=== PATIENT | female | born 1965 | race Caucasian/White ===

== ENCOUNTER 2016-09-13 08:50 | Emergency (ER) | payer OTHER ==
[~2016-09-13] VITALS: Ht 167.6 cm; Wt 87.5 kg
--- NOTE | 2016-09-13 09:00 | NUR ---
ARRIVAL PT ARRIVED AMBULATORY TO ER 6 C/O FLANK PAIN X1 DAY. NO ACUTE DISTRESS NOTED. EDP NOTIFIED OF PT ARRIVAL.
--- NOTE | 2016-09-13 09:03 | ER.PDOC ---
General Chief Complaint: Requesting Medical Care Stated Complaint: LOWER BACK PAIN Time seen by MD: 09:03 Source: patient Exam Limitations: no limitations History of Present Illness Initial Comments PT ARRIVED AMBULATORY TO ER 6 C/O FLANK PAIN X1 DAY. Timing/Duration: constant, yesterday Severity/Quality: severe Associated Symptoms: lower back pain Allergies: Coded Allergies: fluticasone (Verified Allergy, Unknown, Swelling, 09/13/16) salmeterol (Verified Allergy, Unknown, Swelling, 09/13/16) Vital Signs First Vital Signs Date Time Temp Pulse Resp B/P (MAP) Pulse Ox O2 Delivery O2 Flow Rate FiO2 09/13/16 09:06 97.7 86 17 100 09/13/16 09:10 140/75 (96) Last Vital Signs Date Time Temp Pulse Resp B/P (MAP) Pulse Ox O2 Delivery O2 Flow Rate FiO2 09/13/16 11:13 85 17 100 09/13/16 10:53 97.7 111/58 (75) Past Medical History Medical History: no pertinent history Family History Significant Family History: no pertinent family hx Social History Smoking: non-smoker Alcohol Use: sober Drug Use: none Reviewed Nursing Reviewed: Vital Signs, Abn. Noted, Nursing Assessment Review of Systems Constitutional: no symptoms reported EENTM: no symptoms reported Respiratory: no symptoms reported Cardiovascular: no symptoms reported Gastrointestinal: see HPI, abdominal pain (lower, moderate to severe, radiation to low back) Genitourinary: see HPI Musculoskeletal: no symptoms reported Skin: no symptoms reported Psychiatric/Neurological: no symptoms reported All Other Systems: Reviewed and Negative Physical Exam General Appearance: No Apparent Distress, WD/WN HEENT: PERRL/EOMI, Normal ENT Inspection, TMs Normal, Pharynx Normal Neck: Non-Tender, Normal Alignment Cardiovascular/Respiratory: Regular Rate, Rhythm, No M/R/G, Normal Peripheral Pulses, No JVD, Normal Breath Sounds, No Respiratory Distress Gastrointestinal: Normal Bowel Sounds, Tenderness (lower, moderate, no guard or rebound. No CVAT) Extremities: No Evidence of Injury, Normal Range of Motion, Non-Tender, No Pedal Edema, Pelvis Stable Neuro/Psych: Alert, outsole tacker nml/symmetrical, mood/effect nml, No Motor/Sensory Deficits, Relexes nml Skin: Normal Color, Warm/Dry Results/Orders Results/Orders Laboratory Tests Test 09/13/16 09:10 09/13/16 09:20 Urine Collection Type Void Urine Color Yellow (YELLOW) Urine Appearance Clear (CLEAR) Urine Bilirubin Negative MG/DL (NEGATIVE) Urine Ketones Negative (NEGATIVE) Urine Specific [place] 1.000 (1.005-1.035) Urine pH 7 (5.0-6.0) Urine Protein Negative (NEGATIVE) Urine Urobilinogen Normal (NEGATIVE) Urine Nitrate Negative (NEGATIVE) Urine Leukocyte Esterase 500/ul 2+ (NEGATIVE) Urine Blood Negative (NEGATIVE) Urine RBC 0-2 RBC/HPF (NONE SEEN) Urine WBC 10-25 WBC/HPF (0-2) Urine Squamous Epithelial Cells Moderate #/HPF (FEW) Urine Bacteria Many (NONE SEEN) Urine Glucose Normal (NEGATIVE) White Blood Count 12.5 10^3/uL (4.5-11.0) Red Blood Count 3.82 10^6/uL (4.00-5.20) Hemoglobin 12.1 g/dL (12.0-15.0) Hematocrit 35.3 % (36.0-46.0) Mean Corpuscular Volume 92.4 fL (78-100) Mean Corpuscular Hemoglobin 31.7 pg (26-34) Mean Corpuscular Hemoglobin Concent 34.3 g/dL (33-37) Red Cell Distribution Width 12.9 % (11.5-14.5) Platelet Count 264 10^3/uL (150-400) Mean Platelet Volume 8.5 fL (7.8-11.0) Neutrophils (%) (Auto) 85.5 % (41.0-85.0) Lymphocytes (%) (Auto) 5.5 % (24.0-44.0) Monocytes (%) (Auto) 7.4 % (5.0-12.0) Neutrophils # (Auto) 10.7 10^3/uL (1.8-7.7) Lymphocytes # (Auto) 0.7 10^3/uL (1.0-4.8) Monocytes # (Auto) 0.9 10^3/uL (0.3-0.8) Absolute Immature Granulocyte (auto 0.04 10^3 u/L (0-2) Differential Total Cells Counted 100 #CELLS Eosinophils % 1.0 % (0.0-5.0) Basophils % 0.3 % (0.0-0.2) Segmented Neutrophils 89 % (31-76) Lymphocytes 2 % (25-36) Monocytes 9 % (3-9) Basophils # 0.0 10^3/uL (0.0-0.1) Platelet Estimate Adequate Platelet Morphology Normal Eosinophil Count 0.1 10^3/uL (0.0-0.2) Prothrombin Time 10.3 SEC (9.8-11.9) Prothromb Time International Ratio 1.0 Activated Partial Thromboplast Time 25.2 SEC (24.67-30.72) Sodium Level 135 mmol/L (132-145) Potassium Level 3.4 mmol/L (3.6-5.2) Chloride Level 102.0 mmol/L (96-109) Carbon Dioxide Level 22.2 mmol/L (20.0-32) Anion Gap 14.2 Blood Urea Nitrogen 9 mg/dL (7-18) Creatinine 0.95 mg/dL (0.59-1.40) Estimated GFR () 75.7 BUN/Creatinine Ratio 9.0 Glucose Level 160 mg/dL (70-110) Calculated Osmolality 281.2 Calcium Level 8.1 mg/dL (8.4-10.5) Total Bilirubin 0.5 mg/dL (0.2-1.0) Aspartate Amino Transf (AST/SGOT) 12 U/L (0-35) Alanine Aminotransferase (ALT/SGPT) 15 U/L (12-78) Alkaline Phosphatase 80 U/L (50-136) Total Protein 6.4 g/dL (6.4-8.2) Albumin 2.9 g/dL (3.4-5.0) Globulin 3.5 Percent Immature Gran (Cell Imm) 0.30 % (0.00-0.50) Administered Medications Medications (Trade) Dose Ordered Sig/Marah Route PRN Reason Start Time Stop Time Status Last Admin Dose Admin Ketorolac Tromethamine (Toradol) 60 mg STAT STAT IM 09/13/16 10:34 09/13/16 10:35 DC 09/13/16 10:38 Laboratory Tests Test 09/13/16 09:10 09/13/16 09:20 Urine Collection Type Void Urine Color Yellow Urine Appearance Clear Urine Bilirubin Negative MG/DL Urine Ketones Negative Urine Specific [place] 1.000 Urine pH 7 Urine Protein Negative Urine Urobilinogen Normal Urine Nitrate Negative Urine Leukocyte Esterase 500/ul 2+ Urine Blood Negative Urine RBC 0-2 RBC/HPF Urine WBC 10-25 WBC/HPF Urine Squamous Epithelial Cells Moderate #/HPF Urine Bacteria Many Urine Glucose Normal White Blood Count 12.5 10^3/uL Red Blood Count 3.82 10^6/uL Hemoglobin 12.1 g/dL Hematocrit 35.3 % Mean Corpuscular Volume 92.4 fL Mean Corpuscular Hemoglobin 31.7 pg Mean Corpuscular Hemoglobin Concent 34.3 g/dL Red Cell Distribution Width 12.9 % Platelet Count 264 10^3/uL Mean Platelet Volume 8.5 fL Neutrophils (%) (Auto) 85.5 % Lymphocytes (%) (Auto) 5.5 % Monocytes (%) (Auto) 7.4 % Neutrophils # (Auto) 10.7 10^3/uL Lymphocytes # (Auto) 0.7 10^3/uL Monocytes # (Auto) 0.9 10^3/uL Absolute Immature Granulocyte (auto 0.04 10^3 u/L Differential Total Cells Counted 100 #CELLS Eosinophils % 1.0 % Basophils % 0.3 % Segmented Neutrophils 89 % Lymphocytes 2 % Monocytes 9 % Basophils # 0.0 10^3/uL Platelet Estimate Adequate Platelet Morphology Normal Eosinophil Count 0.1 10^3/uL Prothrombin Time 10.3 SEC Prothromb Time International Ratio 1.0 Activated Partial Thromboplast Time 25.2 SEC Sodium Level 135 mmol/L Potassium Level 3.4 mmol/L Chloride Level 102.0 mmol/L Carbon Dioxide Level 22.2 mmol/L Anion Gap 14.2 Blood Urea Nitrogen 9 mg/dL Creatinine 0.95 mg/dL Estimated GFR () 75.7 BUN/Creatinine Ratio 9.0 Glucose Level 160 mg/dL Calculated Osmolality 281.2 Calcium Level 8.1 mg/dL Total Bilirubin 0.5 mg/dL Aspartate Amino Transf (AST/SGOT) 12 U/L Alanine Aminotransferase (ALT/SGPT) 15 U/L Alkaline Phosphatase 80 U/L Total Protein 6.4 g/dL Albumin 2.9 g/dL Globulin 3.5 Percent Immature Gran (Cell Imm) 0.30 % Current Medications Medications (Trade) Dose Ordered Sig/Marah Route PRN Reason Start Time Stop Time Status Last Admin Dose Admin Ketorolac Tromethamine (Toradol) 60 mg STAT STAT IM 09/13/16 10:34 09/13/16 10:35 DC 09/13/16 10:38 Ketorolac Tromethamine (Toradol) 60 mg STK-MED ONCE .ROUTE 09/13/16 10:34 09/13/16 10:35 DC EKG/XRAY/CT/US CT Comments: No acute abnormalities are seen in the abdomen and pelvis Departure Time of Disposition: 10:23 Disposition: 01 HOME, SELF-CARE Impression: Primary Impression: UTI (urinary tract infection) Additional Impression: Pelvic pain Condition: Stable Additional Instructions: ultram 50mg q4 prn Cipro 500mg po bid 7 days See your PcP and return PRN OTC AZO Problem Qualifiers Primary Impression: UTI (urinary tract infection) Urinary tract infection type: acute cystitis Hematuria presence: without hematuria Qualified Codes: N30.00 - Acute cystitis without hematuria LOREE BRANCH MD Sep 13, 2016 09:03
[2016-09-13 09:21] LABS: BASOPHIL % 0.3 % (0.0-0.2); EOSINOPHIL # 0.1 10^3/uL (0.0-0.2); HEMATOCRIT 35.3 % (36.0-46.0); HEMOGLOBIN 12.1 g/dL (12.0-15.0); LYMPHOCYTES # 0.7 10^3/uL (1.0-4.8); LYMPHOCYTES % 5.5 % (24.0-44.0); MEAN CELL HGB 31.7 pg (26-34); MEAN CELL HGB CONCENTRATION 34.3 g/dL (33-37); MEAN CORP VOLUME 92.4 fL (78-100); MEAN PLATELET VOLUME 8.5 fL (7.8-11.0); MONOCYTES # 0.9 10^3/uL (0.3-0.8); MONOCYTES % 7.4 % (5.0-12.0); NEUTROPHIL # 10.7 10^3/uL (1.8-7.7); NEUTROPHILS % 85.5 % (41.0-85.0); PLATELET COUNT 264 10^3/uL (150-400); RED CELL DISTRIBUTION WIDTH 12.9 % (11.5-14.5); WHITE BLOOD CELL 12.5 10^3/uL (4.5-11.0)
[2016-09-13 09:38] LABS: CALCIUM 8.1 mg/dL (8.4-10.5); CARBON DIOXIDE 22.2 mmol/L (20.0-32); LYMPHOCYTE 2 % (25-36); MONOCYTE 9 % (3-9); SEGMENTED NEUTROPHILS 89 % (31-76)
--- NOTE | 2016-09-13 09:39 | NUR ---
CT PT BACK FROM CT
--- NOTE | 2016-09-13 09:46 | DIREP ---
PROCEDURE:CT ABDOMEN/PELVIS W/O CONTRAST COMPARISON:None. INDICATIONS:Lower ABd Pain, severe X 1 DAY TECHNIQUE:Axial images were created through the abdomen and pelvis without intravenous contrast material. No oral contrast was administered. Sagittal and coronal reconstructions were performed from source images. FINDINGS: LUNG BASES:Normal. No visible pulmonary or pleural disease. LIVER:Normal. No significant liver lesions are identified. BILIARY:Normal. No visible dilatation or calcification. PANCREAS:Normal. No lesion, fluid collection, ductal dilatation, or atrophy. SPLEEN:Normal. No enlargement or focal lesion. ADRENALS:Normal. No mass or enlargement. URINARY TRACT:Normal. No focal lesions or hydronephrosis. No renal or ureteral calculi are seen. AORTA/VASCULAR:Normal. No aneurysm. RETROPERITONEUM:Normal. No mass or adenopathy. BOWEL/MESENTERY:Normal. There is no intestinal obstruction, free fluid, free air or mesenteric inflammatory changes. The appendix is normal. A moderate to large amount of stool is seen throughout the colon. ABDOMINAL WALL:Normal. No mass or hernia. PELVIC ORGANS:The uterus is absent. BONES:Degenerative changes are noted in the facet joints in the lower lumbar spine. OTHER:Negative. CONCLUSION:No acute abnormalities are seen in the abdomen and pelvis. A moderate to large amount of stool is seen throughout the colon consistent with constipation. Dictated by: Aydin Bautista M.D. on 09/13/2016 at 09:42 AM
[2016-09-13 09:59] LABS: APPEARANCE,URINE CLEAR (CLEAR); BILIRUBIN,URINE NEGATIVE (NEGATIVE); UA COLOR YELLOW (YELLOW); UROBILINOGEN,URINE NORMAL (NEGATIVE)
[2016-09-13] MEDS ORDERED: TORADOL IM STA (10:34)
[2016-09-13] MEDS ORDERED: TORADOL ONE (10:34)
[2016-09-13 11:13] VITALS: BP 140/75
== END 2016-09-13 10:53 | disposition home or self-care (01) ==
LOC: ER 08:50
DX: N30.00 Acute cystitis without hematuria (principal); R10.2 Pelvic and perineal pain; M54.5 Low back pain; Z88.8 Allergy status to other drugs, medicaments and biological substances
CPT/HCPCS: 36415; 74176; 80053; 81000; 85007; 85025; 85610; 85730; 87077; 87086; 87186; 96372; 99285; J1885

== ENCOUNTER → 2016-09-15 | Outpatient (CLI) | payer OTHER ==
--- NOTE | 2016-09-15 17:49 | DIREP ---
PROCEDURE:MRI SPINE CERVICAL W/O COMPARISON:None. INDICATIONS:DDD CERVICAL SPINE TECHNIQUE:T1 sagittal, PD sagittal, T2 sagittal, STIR sagittal, T2 axial, and gradient-echo axial images of the cervical spine are provided. FINDINGS: CRANIOCERVICAL AREA:Normal foramen magnum with no Chiari malformation. ALIGNMENT:Normal. VERTEBRA:No fracture or osseous lesions. SPINAL CORD:Normal size, contour, and signal intensity. PARASPINAL AREA:Normal with no visible mass. OTHER:No additional findings. CERVICAL DISC LEVELS: C2-C3:No significant disc/facet abnormality, spinal stenosis, or foraminal stenosis. C3-C4:Moderate disc space narrowing with [id number] disc bulging resulting in mild spinal canal stenosis. C4-C5:Moderate disc space narrowing with mild disc bulging indenting the ventral aspect of the thecal sac resulting in minimal spinal canal stenosis. Bilateral uncovertebral joint hypertrophy results in mild right-sided and moderate to severe left-sided neural foraminal narrowing. C5-C6:Moderate disc space narrowing with mild disc bulging flattening the ventral aspect of the thecal sac. This results in mild spinal canal stenosis. The AP diameter of the spinal canal measures 8 mm. Uncovertebral joint hypertrophy results in moderately severe right-sided neural foraminal narrowing. C6-C7:There is moderate to severe disc space narrowing and ventral spondylosis and endplate degenerative signal changes. There is moderate posterior disc bulging flattening the ventral aspect of the spinal cord. The AP diameter of the spinal canal measures 8 mm consistent with mild spinal canal stenosis. Uncovertebral joint hypertrophy results in mild right-sided and moderate left-sided neural foraminal narrowing. C7-T1:No significant disc/facet abnormality, spinal stenosis, or foraminal stenosis. CONCLUSION: 1. Moderate degenerative disc disease at C4-5 and C5-6 with moderate to severe degenerative disc disease at C3-4 and C6-7. Degenerative disc changes are greatest at C3-4 and C6-7. 2. Disc bulges result in mild spinal canal stenosis at C3-4, C5-6, and C6-7 and minimal spinal canal stenosis at C4-5. 3. Uncovertebral joint hypertrophy results in neural foraminal narrowing as follows: Moderate to severe right C3-4, mild left C3-4, mild right C4-5, moderate to severe left C4-5, moderately severe right C5-6, mild right C6-7, and moderate left C6-7. Dictated by: Oral Wiggins MD on 09/15/2016 at 05:26 PM
== END | disposition home or self-care (01) ==
LOC: MRI 14:01
PROVIDERS: ATTEND Nurse Practitioner Family
DX: M50.321 Other cervical disc degeneration at C4-C5 level (principal); M50.323 Other cervical disc degeneration at C6-C7 level; M50.31 Other cervical disc degeneration, high cervical region; M48.02 Spinal stenosis, cervical region
CPT/HCPCS: 72141

== ENCOUNTER 2018-05-31 10:17 | Emergency (ER) | payer OTHER ==
[~2018-05-31] VITALS: Ht 170.2 cm; Wt 99.3 kg
[2018-05-31 10:37] VITALS: BP 124/67
--- NOTE | 2018-05-31 10:52 | ER.PDOC ---
General Chief Complaint: Dyspnea/Respdistress Stated Complaint: FLU SYMPTOMS Time seen by MD: 10:51 Source: patient Exam Limitations: no limitations History of Present Illness Initial Comments Cough, runny nose and SOB for 2 days. Timing/Duration: gradual Severity: moderate Associated Symptoms: runny nose, cough, mild SOB Allergies: Coded Allergies: fluticasone (Verified Allergy, Unknown, Swelling, 09/13/16) salmeterol (Verified Allergy, Unknown, Swelling, 09/13/16) Constitutional: no symptoms reported EENTM: see HPI Respiratory: see HPI Cardiovascular: no symptoms reported Gastrointestinal: no symptoms reported All Other Systems: Reviewed and Negative Past Medical History Medical History: asthma Surgical History: hysterectomy LMP (females 10-50): hysterectomy Social History Smoking: non-smoker Alcohol Use: none Drug Use: none Physical Exam General Appearance: alert, no distress Nose: nose nml Neck: nml inspection, supple Respiratory: no resp.distress, breath sounds nml Abdomen: non-tender, no organomegaly CVS: reg rate & rhythm, heart sounds nml Skin: skin rash (redness with erytherma lateral aspect of mid right leg) Extremities: non-tender, nml ROM, no pedal edema NEURO/PSYCH: oriented x 3, CN's nml as tested, motor nml, sensation nml, mood/ affect nml Results/Orders Results/Orders Laboratory Tests Test 05/31/18 11:00 05/31/18 11:01 Influenza Type A Antigen NEGATIVE (NEG) Influenza B Immunofluorescence NEGATIVE (NEG) Group A Streptococcus Screen NEGATIVE (NEGATIVE) White Blood Count 10.5 10^3/uL (4.5-11.0) Red Blood Count 3.91 10^6/uL (4.00-5.20) Hemoglobin 11.0 g/dL (12.0-15.0) Hematocrit 34.1 % (36.0-46.0) Mean Corpuscular Volume 87.2 fL (78-100) Mean Corpuscular Hemoglobin 28.1 pg (26-34) Mean Corpuscular Hemoglobin Concent 32.3 g/dL (33-37) Red Cell Distribution Width 14.8 % (11.5-14.5) Platelet Count 425 10^3/uL (150-400) Mean Platelet Volume 8.4 fL (7.8-11.0) Neutrophils (%) (Auto) 72.1 % (41.0-85.0) Lymphocytes (%) (Auto) 17.8 % (24.0-44.0) Monocytes (%) (Auto) 7.0 % (5.0-12.0) Neutrophils # (Auto) 7.6 10^3/uL (1.8-7.7) Lymphocytes # (Auto) 1.9 10^3/uL (1.0-4.8) Monocytes # (Auto) 0.7 10^3/uL (0.3-0.8) Absolute Immature Granulocyte (auto 0.03 10^3 u/L (0-2) Eosinophils % 2.2 % (0.0-5.0) Basophils % 0.6 % (0.0-0.2) Basophils # 0.1 10^3/uL (0.0-0.1) Eosinophil Count 0.2 10^3/uL (0.0-0.2) D-Dimer 0.57 mg/L (0.19-0.49) Sodium Level 140 mmol/L (132-145) Potassium Level 3.9 mmol/L (3.6-5.2) Chloride Level 104.0 mmol/L (96-109) Carbon Dioxide Level 26.1 mmol/L (20.0-32) Anion Gap 13.8 Blood Urea Nitrogen 16 mg/dL (7-18) Creatinine 0.80 mg/dL (0.59-1.40) Estimated GFR () 91.5 (>/=60) BUN/Creatinine Ratio 20.0 Glucose Level 114 mg/dL (70-110) Calcium Level 8.3 mg/dL (8.4-10.5) Total Bilirubin < 0.1 mg/dL (0.2-1.0) Aspartate Amino Transf (AST/SGOT) 14 U/L (0-35) Alanine Aminotransferase (ALT/SGPT) 22 U/L (12-78) Alkaline Phosphatase 96 U/L (50-136) Troponin I < 0.02 ng/mL (0.00-0.05) Total Protein 6.3 g/dL (6.4-8.2) Albumin 2.8 g/dL (3.4-5.0) Globulin 3.5 Percent Immature Gran (Cell Imm) 0.30 % (0.00-0.50) EKG/XRAY/CT/US EKG Comments: Normal XRAY: chest (No active disease) Departure Time of Disposition: 11:47 Disposition: 01 HOME, SELF-CARE Impression: Primary Impression: Acute upper respiratory infection Additional Impression: Cellulitis Condition: Stable Referrals: FLORA ADRIAN [employer] (PCP) PRIMARY CARE PROVIDER Additional Instructions: Mucinex DM OTC as directed Clindamycin Proair HFA Rest home today and return to work tomorrow F/U with PCP in 1 week Duration or Time Spent with Pa: 45 mins Problem Qualifiers Additional Impression: Cellulitis Site of cellulitis: extremity Site of cellulitis of extremity: lower extremity Laterality: right Qualified Codes: L03.115 - Cellulitis of right lower limb KRISTAL MAYO MD May 31, 2018 10:52
[2018-05-31 11:06] LABS: BASOPHIL # 0.1 10^3/uL (0.0-0.1); BASOPHIL % 0.6 % (0.0-0.2); EOSINOPHIL # 0.2 10^3/uL (0.0-0.2); EOSINOPHIL % 2.2 % (0.0-5.0); LYMPHOCYTES # 1.9 10^3/uL (1.0-4.8); LYMPHOCYTES % 17.8 % (24.0-44.0); MEAN CELL HGB 28.1 pg (26-34); MEAN CELL HGB CONCENTRATION 32.3 g/dL (33-37); MEAN CORP VOLUME 87.2 fL (78-100); MEAN PLATELET VOLUME 8.4 fL (7.8-11.0); MONOCYTES # 0.7 10^3/uL (0.3-0.8); NEUTROPHIL # 7.6 10^3/uL (1.8-7.7); NEUTROPHILS % 72.1 % (41.0-85.0); RED CELL DISTRIBUTION WIDTH 14.8 % (11.5-14.5); WHITE BLOOD CELL 10.5 10^3/uL (4.5-11.0)
--- NOTE | 2018-05-31 11:14 | DIREP ---
PROCEDURE:CHEST 1 VIEW COMPARISON:[facility], CR, XRAY CHEST 2 VWS, 09/07/2016, 03:42 PM. INDICATIONS:Cough FINDINGS: LUNGS/PLEURA:Mild interstitial prominence throughout the bilateral hemithoraces with similar strandy opacities at the left lung base, favoring chronic atelectasis and/or scarring. Infiltrate is considered significantly less likely given the stability from 2017. No pleural effusion or pneumothorax is identified. VASCULATURE:Normal. Unremarkable pulmonary vasculature. CARDIAC:Normal. No cardiac silhouette abnormality or cardiomegaly. MEDIASTINUM:Mediastinal contours appear within normal limits. BONES:Degenerative changes of the shoulders and spine. OTHER:Negative. CONCLUSION: 1. Stable chest with presumed chronic atelectasis and/or scarring at the left lung base. No acute cardiopulmonary abnormality suspected. Dictated by: Osman Alcantar M.D. On 05/31/2018 at 11:12 AM
--- NOTE | 2018-05-31 11:27 | NUR ---
[facility] REPORTED D-DIMER 0.57. DR. GIRALDO NOTIFIED
[2018-05-31 11:28] LABS: ALANINE AMINOTRANSFERASE(ML) 22 U/L (12-78); ALKALINE PHOSPHATASE 96 U/L (50-136); ASPARTATE AMINO TRANSFERASE 14 U/L (0-35); CALCIUM 8.3 mg/dL (8.4-10.5); CARBON DIOXIDE 26.1 mmol/L (20.0-32); GLUCOSE 114 mg/dL (70-110)
--- NOTE | 2018-05-31 11:39 | PCM.EKG ---
[facility] Test Date: 2018-05-31 Test Time: 11:37:54 Pat Name: ESTEBAN VILLELA Department: Room: Gender: F Cold Header: [facility] : 1965 Requested By: KRISTAL MAYO Order Number: [id number] Reading MD: Kristal MAYO Measurements Intervals [place] Rate: 78 P: 39 TN: 178 QRS: 78 QRSD: 88 T: 54 QT: 380 QTc: 433 Interpretive Statements Normal sinus rhythm Normal ECG No previous ECG available for comparison Electronically Signed On 06-01-2018 5:46:32 [employer] by Kristal MAYO Please click the below link to view image of tracing.
[2018-05-31 11:59] VITALS: BP 124/67
== END 2018-05-31 12:02 | disposition home or self-care (01) ==
LOC: ER 10:17
DX: J06.9 Acute upper respiratory infection, unspecified (principal); L03.115 Cellulitis of right lower limb; J45.909 Unspecified asthma, uncomplicated; Z90.710 Acquired absence of both cervix and uterus
CPT/HCPCS: 36415; 71045; 80053; 84484; 85025; 85379; 87070; 87804; 87880; 93005; 99284

== ENCOUNTER 2019-07-12 10:15 | Inpatient (IN) | payer OTHER ==
[2019-07-12] VITALS (12 sets, daily range): BP systolic 64–146; BP diastolic 4–78
[~2019-07-12] VITALS: Ht 170.2 cm; Wt 95.9 kg
--- NOTE | 2019-07-12 10:34 | NUR ---
ARRIVAL PATIENT ARRIVED TO ED4 VIA W/C, C/O OF RIGHT BACK PAIN THAT STARTED TODAY, PATIENT STATES SHE FEELS NAUSEATED AND HER STOMACH HURTS, CALLED FLORA PRITCHARD AND WAS TO COME OT THE ED FOR FURTHER EVAL.
[2019-07-12] MEDS ORDERED: NS 1000ML 1,000 ML ONE (10:54)
[2019-07-12] MEDS ORDERED: TORADOL ONE (10:54)
[2019-07-12] MEDS ORDERED: ZOFRAN ONE (10:54)
[2019-07-12] MEDS ORDERED: NS 1000ML 1,000 ML IV STA (11:02)
[2019-07-12] MEDS ORDERED: TORADOL IV STA (11:02)
[2019-07-12] MEDS ORDERED: ZOFRAN IV STA (11:02)
[2019-07-12 11:10] LABS: BILIRUBIN,URINE NEGATIVE (NEGATIVE); UROBILINOGEN,URINE NORMAL (NEGATIVE)
--- NOTE | 2019-07-12 11:13 | ER.PDOC ---
General Chief Complaint: Female Urogenital Problems Stated Complaint: DIZZY,BACK PAIN,FEMALE Time seen by MD: 11:07 Source: patient Exam Limitations: no limitations History of Present Illness Initial Comments Right flank pain for 1 week, patient is nauseated but no vomiting. She reports fever and chills. Timing/Duration: 1 week Severity/Quality: moderate Radiation: no radiation Associated Symptoms: fever/chills, nausea/vomiting Exacerbated by: nothing Relieved By: nothing Allergies: Coded Allergies: fluticasone (Verified Allergy, Unknown, Swelling, 09/13/16) salmeterol (Verified Allergy, Unknown, Swelling, 09/13/16) Home Meds Reported Medications Albuterol Sulfate (VENTOLIN HFA) 18 Gm Hfa.aer.ad, 18 GM IH PRN PRN for SHORTNESS OF BREATH, INHALATION 07/12/19 Vital Signs First Vital Signs Date Time Temp Pulse Resp B/P (MAP) Pulse Ox O2 Delivery O2 Flow Rate FiO2 07/12/19 10:30 98.1 96 18 97 07/12/19 10:34 146/78 (100) Room Air Last Vital Signs Date Time Temp Pulse Resp B/P (MAP) Pulse Ox O2 Delivery O2 Flow Rate FiO2 07/12/19 11:55 98.1 100 18 106/61 (76) 97 Room Air Past Medical History Medical History: asthma Surgical History: hysterectomy, tonsillectomy, tubal Social History Alcohol Use: occassionally Drug Use: none Constitutional: no symptoms reported Respiratory: no symptoms reported Cardiovascular: no symptoms reported Gastrointestinal: see HPI Genitourinary: no symptoms reported All Other Systems: Reviewed and Negative Physical Exam General Appearance: No Apparent Distress, WD/WN Neck: Non-Tender, Full Range of Motion, Supple, Normal Inspection Respiratory: chest non-tender, lungs clear, normal breath sounds, no respiratory distress, no accessory muscle use Cardiovascular: Normal Peripheral Pulses, Regular Rate, Rhythm, No Edema, No Gallop, No JVD, No Murmur Gastrointestinal: Normal Bowel Sounds, No Organomegaly, No Pulsatile Mass, Tenderness Back: Normal Inspection, CVA Tenderness (R) Extremities: Normal Range of Motion, Non-Tender, Normal Inspection, No Pedal Edema, No Calf Tenderness, Normal Capillary Refill, Pelvis Stable Neurologic/Psychiatric: chief executive officer II-XII NML as Tested, No Motor/Sensory Deficits, Alert, Normal Mood/Affect, Oriented x 3 Skin: Normal Color, Warm/Dry Results/Orders Results/Orders Orders - KRISTAL MAYO MD 0.9 % Sodium Chloride (Ns 1000ml) (07/12/19 10:54) Ondansetron Hcl/Pf (Zofran) (07/12/19 10:54) Ketorolac Tromethamine (Toradol) (07/12/19 10:54) Cbc With Auto Diff (07/12/19 11:02) Comprehensive Metabolic Panel (07/12/19 11:02) PT (07/12/19 11:02) Partial Thromboplastin Time. (07/12/19 11:02) Urinalysis (07/12/19 11:02) Ct Abd/Pelvis Wo Iv Contrast (07/12/19 11:02) 0.9 % Sodium Chloride (Ns 1000ml) (07/12/19 11:02) Ondansetron Hcl/Pf (Zofran) (07/12/19 11:02) Ketorolac Tromethamine (Toradol) (07/12/19 11:02) Ekg-Routine (07/12/19 11:07) Urine Culture (07/12/19 11:02) Stool Occult Blood(Ifobt) (07/12/19 12:31) Vital Signs Date Time Temp Pulse Resp B/P (MAP) Pulse Ox O2 Delivery O2 Flow Rate FiO2 07/12/19 11:55 98.1 100 18 106/61 (76) 97 Room Air 07/12/19 10:34 98.1 96 18 146/78 (100) 97 Room Air 07/12/19 10:30 98.1 96 18 07/12/19 10:30 98.1 96 18 97 Administered Medications Medications (Trade) Dose Ordered Sig/Marah Route PRN Reason Start Time Stop Time Status Last Admin Dose Admin Ketorolac Tromethamine (Toradol) 30 mg STAT STAT IV 07/12/19 11:02 07/12/19 11:06 DC 07/12/19 11:28 30 MG Ondansetron HCl (Zofran) 4 mg STAT STAT IV 07/12/19 11:02 07/12/19 11:06 DC 07/12/19 11:29 4 MG Sodium Chloride 1,000 ml @ 1,200 mls/hr Q50M STAT IV 4/16/20 11:02 07/12/19 11:51 DC 07/12/19 11:28 1,200 MLS/HR Laboratory Tests Test 07/12/19 11:07 07/12/19 11:25 Urine Collection Type VOID Urine Color YELLOW (YELLOW) Urine Appearance HAZY (CLEAR) H Urine Bilirubin NEGATIVE MG/DL (NEGATIVE) Urine Ketones NEGATIVE (NEGATIVE) Urine Specific [place] 1.015 (1.005-1.035) Urine pH 6 (5.0-6.0) Urine Protein NEGATIVE (NEGATIVE) Urine Urobilinogen NORMAL (NEGATIVE) Urine Nitrate NEGATIVE (NEGATIVE) Urine Leukocyte Esterase 25 /uL TRACE (NEGATIVE) Urine Blood NEGATIVE (NEGATIVE) Urine RBC NONE SEEN RBC/HPF (NONE Urine WBC 5-10 WBC/HPF (0-2) H Urine Squamous Epithelial Cells FEW #/HPF (FEW) Urine Bacteria FEW (NONE SEEN) H Urine Glucose NORMAL (NEGATIVE) White Blood Count 9.3 10^3/uL (4.5-11.0) Red Blood Count 2.07 10^6/uL (4.00-5.20) L Hemoglobin 5.2 g/dL (12.0-15.0) *L Hematocrit 16.7 % (36.0-46.0) L Mean Corpuscular Volume 80.7 fL (78-100) Mean Corpuscular Hemoglobin 25.1 pg (26-34) L Mean Corpuscular Hemoglobin Concent 31.1 g/dL (33-36.5) L Red Cell Distribution Width 19.0 % (11.5-14.5) H Platelet Count 301 10^3/uL (150-400) Mean Platelet Volume 9.2 fL (7.8-11.0) Neutrophils (%) (Auto) 73.3 % (41.0-85.0) Lymphocytes (%) (Auto) 19.5 % (24.0-44.0) L Monocytes (%) (Auto) 5.5 % (5.0-12.0) Neutrophils # (Auto) 6.8 10^3/uL (1.8-7.7) Lymphocytes # (Auto) 1.81 10^3/uL1 (1.0-4.8) Monocytes # (Auto) 0.5 10^3/uL (0.3-0.8) Absolute Immature Granulocyte (auto 0.02 10^3 u/L (0-2) Absolute Eosinophils (auto) 0.1 10^3/uL (0.0-0.2) Immature Granulocytes % 0.20 % (0.00-0.50) Eosinophils % 1.2 % (0.0-5.0) Basophils % 0.3 % (0.0-0.2) H Basophils # 0.0 10^3/uL (0.0-0.1) Prothrombin Time 10.0 SEC (9.3-11.3) Prothrombin Time INR (Non-Therap) 1.0 Activated Partial Thromboplast Time 20.0 SEC (24.67-30.72) Sodium Level 135 mmol/L (132-145) Potassium Level 4.0 mmol/L (3.6-5.2) Chloride Level 104.0 mmol/L (96-109) Carbon Dioxide Level 24.9 mmol/L (20.0-32) Anion Gap 10.1 Blood Urea Nitrogen 32 mg/dL (7-18) H Creatinine 0.79 mg/dL (0.59-1.40) Estimated GFR () 92.5 (>/=60) Est GFR (CKD-EPI)(Non-Afr Latvian) 76.4 (>/=60) BUN/Creatinine Ratio 40.0 Glucose Level 109 mg/dL (70-110) Calcium Level 7.5 mg/dL (8.4-10.5) L Total Bilirubin 0.1 mg/dL (0.2-1.0) L Aspartate Amino Transferase (AST) 13 U/L (0-35) Alanine Aminotransferase (ALT) 18 U/L (12-78) Alkaline Phosphatase 52 U/L (50-136) Total Protein 5.0 g/dL (6.4-8.2) L Albumin 2.3 g/dL (3.4-5.0) L Globulin 2.[address] abdomen/pelvis: No significant abnormality is seen. Specifically, no nephrolithiasis or hydronephrosis is noted. EKG/XRAY/CT/US EKG Comments: Normal Departure Time of Disposition: 12:32 Disposition: 09 ADMITTED INPATIENT Impression: Primary Impression: Anemia Additional Impression: UTI (urinary tract infection) Condition: Stable Referrals: FLORA ADRIAN CORNER TRIMMER OPERATOR (PCP) PRIMARY CARE PROVIDER Comments Admitted to Dr. Bertrand Duration or Time Spent with Pa: 60 min Problem Qualifiers Primary Impression: Anemia Anemia type: unspecified type Qualified Codes: D64.9 - Anemia, unspecified Additional Impression: UTI (urinary tract infection) Urinary tract infection type: site unspecified Hematuria presence: without hematuria Qualified Codes: N39.0 - Urinary tract infection, site not specified KRISTAL MAYO MD Jul 12, 2019 11:13
[2019-07-12 11:14] LABS: APPEARANCE,URINE HAZY (CLEAR); UA COLOR YELLOW (YELLOW)
--- NOTE | 2019-07-12 11:20 | PCM.EKG ---
[facility] Test Date: 2019-07-12 Test Time: 11:09:20 Pat Name: ESTEBAN VILLELA Department: Room: ICU1 Gender: F Screw Cutter: TB : 1965 Requested By: KRISTAL MAYO Order Number: [id number] Reading MD: Kristal MAYO Measurements Intervals [place] Rate: 89 P: -9 RI: 136 QRS: 76 QRSD: 96 T: 67 QT: 372 QTc: 453 Interpretive Statements Sinus rhythm Baseline wander in lead(s) V5 Compared to ECG 05/31/2018 11:37:54 No significant changes Electronically Signed On 07-15-2019 4:21:29 CDT by Kristal MAYO Please click the below link to view image of tracing.
[2019-07-12 11:31] LABS: BASOPHIL % 0.3 % (0.0-0.2); EOSINOPHIL # 0.1 10^3/uL (0.0-0.2); EOSINOPHIL % 1.2 % (0.0-5.0); LYMPHOCYTES # 1.81 10^3/uL1 (1.0-4.8); LYMPHOCYTES % 19.5 % (24.0-44.0); MEAN CORP HGB 25.1 pg (26-34); MONOCYTES # 0.5 10^3/uL (0.3-0.8); MONOCYTES % 5.5 % (5.0-12.0); NEUTROPHIL # 6.8 10^3/uL (1.8-7.7); NEUTROPHILS % 73.3 % (41.0-85.0); PLATELET COUNT 301 10^3/uL (150-400)
[2019-07-12] MEDS ORDERED: ALBU18HF IH (11:39)
--- NOTE | 2019-07-12 11:39 | NUR ---
CAT SCAN PATIENT TO AND FROM CAT SCAN WITH NANCY FROM RADIOLOGY.
--- NOTE | 2019-07-12 11:43 | NUR ---
PATIENT BACK IN ROOM FROM CAT SCAN
[2019-07-12 11:48] LABS: CALCIUM 7.5 mg/dL (8.4-10.5); CARBON DIOXIDE 24.9 mmol/L (20.0-32)
--- NOTE | 2019-07-12 12:01 | DIREP ---
PROCEDURE:CT ABD/PELVIS WITHOUT CONTRAST TECHNIQUE:The patient drank oral contrast material. Axial cuts were obtained through the abdomen and pelvis without IV contrast. The images were viewed at lung and soft tissue settings. Sagittal and coronal reconstructions are provided. COMPARISON:[facility], CT, CT ABD/PELVIS W/O, 09/13/2016, 09:37 AM. INDICATIONS:Right flank pain FINDINGS: LOWER CHEST:There appears to be minimal atelectasis in the left lung base. LIVER:Normal. BILIARY:Normal. PANCREAS:Normal. SPLEEN:Normal. URINARY TRACT:No nephrolithiasis, ureteral calculus, or hydronephrosis is seen. ADRENALS:Normal. AORTA/VASCULAR:Normal. RETROPERITONEUM:Normal. BOWEL/MESENTERY:Radiopaque contrast or ingested material is noted within the bowel. There is no evidence of bowel obstruction or pneumatosis. No pneumoperitoneum is seen. No inflammatory changes are seen within the mesenteric fat. There is no evidence of appendicitis. ABDOMINAL WALL:Normal. PELVIS:Status post hysterectomy; no abnormal pelvic mass or pelvic lymphadenopathy is seen. BONES:Mild thoracolumbar scoliosis is noted. Fairly severe bilateral articular facet arthropathy is noted at the L4/5 and L5/S1 levels. OTHER:Normal. CONCLUSION: 1. No significant abnormality is seen. Specifically, no nephrolithiasis or hydronephrosis is noted. Dictated by: Johnathan Winston M.D. on 07/12/2019 at 11:51 AM
--- NOTE | 2019-07-12 12:26 | NUR ---
LISY MAHONEY MBA ON THE PHONE WITH DOCTOR WASSERMAN DISCUSSING PATIENT ADMISSION.
[2019-07-12] MEDS ORDERED: ROCEPHIN 1 GM in NS 100ML 100 ML IV STA (12:33)
[2019-07-12] MEDS ORDERED: ROCEPHIN ONE (12:36)
[2019-07-12] MEDS ORDERED: NS 500ML 500 ML IV ONE (14:18)
--- NOTE | 2019-07-12 14:19 | PCM.HP ---
HISTORY & PHYSICAL HISTORY & PHYSICAL DATE: July 12, 2019 Patient is admitted to [facility] as an inpatient ADMITTING DIAGNOSES: Abdominal pain with acute anemia of unknown etiology, history of asthma, suspect UTI CHIEF COMPLAINT: Feeling weak and faint and abdominal pain HISTORY OF PRESENT ILLNESS: 54-year-old female with history of asthma who has had increasing dizziness and lightheadedness for the past 2 to 3 weeks now. She reports having some epigastric pains radiating to her back during this time as well. She has been very nauseated and having reflux type symptoms but no true vomiting. She reports having fever and chills as well. She denies any melena, hematochezia, hemoptysis, hematemesis. She denies any significant shortness of breath at this time. She denies any trauma or recent travel as well. She had handles cattle at work. She denies any overuse of NSAIDs. PAST MEDICAL HISTORY: Asthma, migraine headaches PAST SURGICAL HISTORY: Partial hysterectomy, BTL, tonsillectomy, vein stripping in her legs, broken right leg with plate placed ALLERGIES: Sulfa, Flonase, salmeterol MEDICATIONS: MDI and [id number] migraine medicine SOCIAL HISTORY: She dips tobacco, no significant alcohol, no drugs FAMILY HISTORY: Noncontributory for this admission PHYSICAL EXAMINATION: VITAL SIGNS: Temperature 98.1, pulse 96, respirations 18, blood pressure 146/78, O2 sat 97% on room air HEENT: Oropharynx is clear, moist mucous membranes NECK: Supple, no JVD HEART: S1 and S2 audible, no tachycardia LUNGS: CTA bilaterally ABDOMEN: Bowel sounds present, soft abdomen, no masses EXTREMITIES: No pitting edema, 2+ distal pulses noted, her skin is very pale LABORATORY DATA: White count 9.3, hemoglobin 5.2, MCV 81, RDW 19, platelet count 301, coags normal, UA hazy with 5-10 WBCs and few bacteria, occult blood stool negative, chemistry panel with a BUN of 32 and albumin of [address] of abdomen/pelvis without contrast: No acute abnormalities noted ASSESSMENT/plan: We had this female with abdominal pain and back pain and significant anemia of unknown etiology. I will get a work-up done for her anemia and transfuse her with 2 units of blood initially and follow her clinical course GILDARDO WASSERMAN MD Jul 12, 2019 14:19
[2019-07-12] MEDS ORDERED: MORPHINE SULFATE IV STA (14:56)
--- NOTE | 2019-07-12 19:53 | NUR ---
UPDATE AT [address] WASSERMAN PATIENT REQUESTING PAIN MEDICATION FOR A PAIN LEVEL OF 9. RECEIVED ORDER FOR ONE TIME 4 MG MORPHINE IV. AT [address] WASSERMAN PATIENT FINISHED TRANSFUSION AND BLOOD PRESSURE WAS 94/43 AND CLARIFIED THAT IS WAS OK TO GIVE HER THE 4 MG OF MORPHINE. ALSO PATIENT REQUESTING NAUSEA MEDICATION. RECEIVED ORDER FOR ONE TIME 4 MG ZOFRAN IV AND IT WAS OK TO GIVE HER THE MORPHINE.
[2019-07-12] MEDS ORDERED: ZOFRAN IV ONE (20:30)
[2019-07-12] MEDS ORDERED: MORPHINE SULFATE IV ONE (20:30)
--- NOTE | 2019-07-12 23:35 | NUR ---
LAB RECEIVED CRITICAL LAB RESULT FROM BOSSMAN IN LAB. HBG 5.4.
--- NOTE | 2019-07-12 23:52 | NUR ---
UPDATE REPORTED TO DR WASSERMAN PATIENT'S HGB 5.4 AFTER 2ND UNIT OF BLOOD. RECEIVED ORDER TO INFUSE ANOTHER UNIT OF BLOOD. ALSO RECEIVED ORDER FOR PROTONIX 40 MG IV Q 12, GIVE FIRST DOSE NOW.
[2019-07-13] VITALS (28 sets, daily range): BP systolic 64–112; BP diastolic 4–68
[2019-07-13] MEDS: PROTONIX IV IV SCH ×2 (00:32→08:52)
[2019-07-13] MEDS ORDERED: NS 500ML 500 ML IV ONE ×3 (01:17→17:50)
--- NOTE | 2019-07-13 05:50 | NUR ---
MEDICATION INFORMED DR WASSERMAN PATIENT REQUESTING MEDICATION FOR A HEADACHE. RECEIVED ORDER FOR 500 MG TYLENOL Q 6HRS PRN
[2019-07-13] MEDS: TYLENOL PO PRN (05:52)
[2019-07-13 06:08] LABS: BASOPHIL % 0.3 % (0.0-0.2); EOSINOPHIL # 0.1 10^3/uL (0.0-0.2); EOSINOPHIL % 1.9 % (0.0-5.0); LYMPHOCYTES % 20.7 % (24.0-44.0); MEAN CORP HGB 27.8 pg (26-34); MONOCYTES # 0.4 10^3/uL (0.3-0.8); MONOCYTES % 5.1 % (5.0-12.0); NEUTROPHIL # 5.2 10^3/uL (1.8-7.7); NEUTROPHILS % 71.6 % (41.0-85.0); PLATELET COUNT 225 10^3/uL (150-400); RED CELL DISTRIBUTION WIDTH 17.2 % (11.5-14.5)
--- NOTE | 2019-07-13 06:15 | NUR ---
UPDATE LAB CALLED TO REPORT PATIENTS HGB 6.3. INFORMED DR WASSERMAN AT 0618. RECEIVED ORDER FOR ONE UNIT OF BLOOD. ALSO REPORTED TO DR WASSERMAN PATIENT WAS REQUESTING MEDICATION FOR BACK PAIN SHE RATES AT A 9. RECEIVED ORDER FOR MORHINE 4MG IV ONE TIME.
[2019-07-13] MEDS ORDERED: MORPHINE SULFATE IV ONE (07:00)
--- NOTE | 2019-07-13 08:30 | NUR ---
PT BP INCREASED AFTER GETTING UP TO GO TO THE RESTROOM.
[2019-07-13] MEDS: FOLIC ACID PO SCH (08:52)
[2019-07-13] MEDS ORDERED: STADOL IV STA (10:22)
--- NOTE | 2019-07-13 10:27 | PRM.PN ---
Subjective Subjective Date: Jul 13, 2019 Time: 10:15 Subjective Pt having lots of HAs with the blood transfusion Patient History: Patient reports no known family medical history. VTE VTE Risk Total Score: 1 VTE Risk Score VTE Risk: Score 0-1 = Low Risk (Aggressive mobilization; early ambulation; no VTE prophylaxis required) Score 2: Moderate Risk (Intermittent/Pneumatic Compression Device OR Lovenox/Heparin/Coumadin) Score 3-4: High Risk (Intermittent/Pneumatic Compression Device AND Lovenox/Heparin/Coumadin) Score > or =5: Highest Risk (Intermittent/Pneumatic Compression Device AND Lovenox/Heparin/Coumadin) Antico:Hep/LMWH/Coum/Xarelto: No Mechanical device ordered: Yes Review of Systems Constitutional: No: Fever, Chills, Sweats, Weakness Eyes: No: Pain, Vision change, Conjunctivae inflammation, Eyelid inflammation ENT: No: Ear pain, Ear discharge, Nose pain, Nose discharge Respiratory: No: Cough, Dry, Shortness of breath, SOB with excertion Cardiovascular: No: Chest Pain, Palpitations, Orthopnea Gastrointestinal: Abdominal Pain; No: Nausea, Vomiting, Diarrhea Genitourinary: No Dysuria, No Frequency, No Incontinence Musculoskeletal: No: neck pain, shoulder pain, arm pain Skin: No: Rash, Lesions, Jaundice, Bruising Neurological: No: Numbness, Incoordination, Change in speech, Confusion, Seizures Allergies: Coded Allergies: fluticasone (Verified Allergy, Unknown, Swelling, 09/13/16) salmeterol (Verified Allergy, Unknown, Swelling, 09/13/16) Scheduled PRN Albuterol Sulfate (Ventolin Hfa), 18 GM IH PRN PRN for SHORTNESS OF BREATH, (Reported) Objective Vitals and I/O Vital Sign - Last 24 Hours 07/12/19 07/12/19 07/12/19 07/12/19 10:30 10:30 10:34 11:55 Temp 98.1 98.1 98.1 98.1 Pulse 96 96 96 100 Resp 18 18 18 18 B/P (MAP) 146/78 (100) 106/61 (76) Pulse Ox 97 97 97 O2 Delivery Room Air Room Air 07/12/19 07/12/19 07/12/19 07/12/19 12:59 14:01 14:07 14:27 Temp 98.1 98.3 98.3 Pulse 96 80 83 Resp 18 18 18 B/P (MAP) 105/60 (75) 128/77 (94) 106/65 Pulse Ox 97 96 O2 Delivery Room Air Room Air Room Air 07/12/19 07/12/19 07/12/19 07/12/19 14:49 17:20 17:21 17:39 Temp 98.2 98.6 98.6 98.4 Pulse 83 86 86 76 Resp 18 16 16 18 B/P (MAP) 113/72 104/59 104/59 109/72 20 07/12/19 07/12/19 07/13/19 19:45 19:45 19:46 00:15 Temp 98.1 98.1 98.1 Pulse 74 74 74 Resp 18 18 18 B/P (MAP) 64/4 (24) 94/43 94/43 (60) Pulse Ox 98 98 O2 Delivery Room Air Room Air Room Air 07/13/19 07/13/19 07/13/19 07/13/19 02:17 02:35 05:09 05:27 Temp 98.1 98.2 98.6 98.6 Pulse 74 77 86 86 Resp 18 18 17 18 B/P (MAP) 95/50 107/65 112/64 112/64 (80) Pulse Ox 98 O2 Delivery Room Air 07/13/19 07/13/19 07/13/19 07/13/19 07:25 07:26 08:20 08:30 Temp 98.3 98.3 98.1 Pulse 90 90 81 Resp 16 16 16 B/P (MAP) 82/41 (55) 85/43 100/63 Pulse Ox 90 O2 Delivery Room Air Room Air 07/13/19 07/13/19 07/13/19 07/13/19 08:45 09:00 09:15 09:53 Temp 98.4 Pulse 87 80 79 71 Resp 16 B/P (MAP) 97/55 91/58 97/59 101/65 Intake and Output 07/12/19 07/12/19 07/13/19 15:00 23:00 07:00 Intake Total 1000 ml 1670 ml 730 ml Balance 1000 ml 1670 ml 730 ml General: Alert, Oriented X3, Cooperative, No acute distress HEENT: Atraumatic, PERRLA, EOMI, Mucous membr. moist/pink Neck: Supple, No JVD, No thyromegaly Lungs: Clear to auscultation, Normal air movement Heart: Normal S1, Normal S2 Abdomen: Normal bowel sounds, Soft Extremities: No clubbing, No cyanosis, No edema Skin: No rashes, No breakdown, No significant lesion Neuro: Normal speech Psych/Mental Status: Mental status NL, Mood NL All Results(Lab/Rad) Laboratory Tests Test 07/12/19 11:07 07/12/19 11:25 07/12/19 12:31 07/12/19 14:30 Urine Collection Type VOID Urine Color YELLOW Urine Appearance HAZY Urine Bilirubin NEGATIVE MG/DL Urine Ketones NEGATIVE Urine Specific [place] 1.015 Urine pH 6 Urine Protein NEGATIVE Urine Urobilinogen NORMAL Urine Nitrate NEGATIVE Urine Leukocyte Esterase 25 /uL TRACE Urine Blood NEGATIVE Urine RBC NONE SEEN RBC/HPF Urine WBC 5-10 WBC/HPF Urine Squamous Epithelial Cells FEW #/HPF Urine Bacteria FEW Urine Glucose NORMAL White Blood Count 9.3 10^3/uL Red Blood Count 2.07 10^6/uL Hemoglobin 5.2 g/dL Hematocrit 16.7 % Mean Corpuscular Volume 80.7 fL Mean Corpuscular Hemoglobin 25.1 pg Mean Corpuscular Hemoglobin Concent 31.1 g/dL Red Cell Distribution Width 19.0 % Platelet Count 301 10^3/uL Mean Platelet Volume 9.2 fL Neutrophils (%) (Auto) 73.3 % Lymphocytes (%) (Auto) 19.5 % Monocytes (%) (Auto) 5.5 % Neutrophils # (Auto) 6.8 10^3/uL Lymphocytes # (Auto) 1.81 10^3/uL1 Monocytes # (Auto) 0.5 10^3/uL Absolute Immature Granulocyte (auto 0.02 10^3 u/L Absolute Eosinophils (auto) 0.1 10^3/uL Immature Granulocytes % 0.20 % Eosinophils % 1.2 % Basophils % 0.3 % Basophils # 0.0 10^3/uL Prothrombin Time 10.0 SEC Prothrombin Time INR (Non-Therap) 1.0 Activated Partial Thromboplast Time 20.0 SEC D-Dimer 0.82 mg/L Sodium Level 135 mmol/L Potassium Level 4.0 mmol/L Chloride Level 104.0 mmol/L Carbon Dioxide Level 24.9 mmol/L Anion Gap 10.1 Blood Urea Nitrogen 32 mg/dL Creatinine 0.79 mg/dL Estimated GFR () 92.5 Est GFR (CKD-EPI)(Non-Afr Malagasy) 76.4 BUN/Creatinine Ratio 40.0 Glucose Level 109 mg/dL Calcium Level 7.5 mg/dL Ferritin 5 ng/mL Total Bilirubin 0.1 mg/dL Aspartate Amino Transf (AST/SGOT) 13 U/L Alanine Aminotransferase (ALT/SGPT) 18 U/L Alkaline Phosphatase 52 U/L C-Reactive Protein 0.10 mg/dL Total Protein 5.0 g/dL Albumin 2.3 g/dL Globulin 2.7 Vitamin B12 Level 256 pg/mL Folate 7.2 ng/mL Thyroid Stimulating Hormone (TSH) 5.131 mIU/mL Stool Occult Blood (IFOB) NEGATIVE Blood Smear Pathologist Review Pending Erythrocyte Sedimentation Rate 15 mm/hr Absolute Reticulocyte Count 0.0673 10^6uL Percent Reticulocyte Count 3.64 % Amylase Level 29 U/L Lipase 67 U/L Test 07/12/19 23:24 07/12/19 23:26 07/13/19 06:00 Hemoglobin 5.4 g/dL 6.2 g/dL Hematocrit 16.6 % 18.6 % Haptoglobin 130 mg/dL Iron Level 52 ug/dL Total Iron Binding Capacity 250 ug/dL Percent Iron Saturation 20.8 % Unsaturated Iron Binding Capacity 198.0 ug/dL White Blood Count 7.3 10^3/uL Red Blood Count 2.23 10^6/uL Mean Corpuscular Volume 83.4 fL Mean Corpuscular Hemoglobin 27.8 pg Mean Corpuscular Hemoglobin Concent 33.3 g/dL Red Cell Distribution Width 17.2 % Platelet Count 225 10^3/uL Mean Platelet Volume 8.5 fL Neutrophils (%) (Auto) 71.6 % Lymphocytes (%) (Auto) 20.7 % Monocytes (%) (Auto) 5.1 % Neutrophils # (Auto) 5.2 10^3/uL Lymphocytes # (Auto) 1.50 10^3/uL1 Monocytes # (Auto) 0.4 10^3/uL Absolute Immature Granulocyte (auto 0.03 10^3 u/L Absolute Eosinophils (auto) 0.1 10^3/uL Immature Granulocytes % 0.40 % Eosinophils % 1.9 % Basophils % 0.3 % Basophils # 0.0 10^3/uL Current Medications Medications (Trade) Dose Ordered Sig/Marah Route PRN Reason Start Time Stop Time Status Last Admin Dose Admin Sodium Chloride 1,000 ml @ ud STK-MED ONCE .ROUTE 07/12/19 10:54 07/12/19 10:57 DC Ondansetron HCl (Zofran) 4 mg STK-MED ONCE .ROUTE 07/12/19 10:54 07/12/19 10:57 DC Ketorolac Tromethamine (Toradol) 30 mg STK-MED ONCE .ROUTE 07/12/19 10:54 07/12/19 10:57 DC Sodium Chloride 1,000 ml @ 1,200 mls/hr Q50M STAT IV 07/12/19 11:02 07/12/19 11:51 DC 07/12/19 11:28 Ondansetron HCl (Zofran) 4 mg STAT STAT IV 07/12/19 11:02 07/12/19 11:06 DC 07/12/19 11:29 Ketorolac Tromethamine (Toradol) 30 mg STAT STAT IV 07/12/19 11:02 07/12/19 11:06 DC 07/12/19 11:28 Ceftriaxone Sodium 1 gm/ Sodium Chloride 100 ml @ 100 mls/hr STAT STAT IV 07/12/19 12:33 07/12/19 13:32 DC 07/12/19 12:41 Ceftriaxone Sodium (Rocephin) 1 gm STK-MED ONCE .ROUTE 07/12/19 12:36 07/12/19 12:38 DC Sodium Chloride 500 ml @ ud STK-MED ONCE IV 07/12/19 14:18 07/12/19 14:20 DC Morphine Sulfate (Morphine Sulfate) 4 mg OT STAT IV 07/12/19 14:56 07/12/19 15:44 DC 07/12/19 14:56 Temazepam (Restoril) 30 mg HS PRN PO INSOMNIA 07/12/19 15:00 08/11/19 14:59 Folic Acid (Folic Acid) 1 mg DAILY PO 07/13/19 09:00 08/12/19 08:59 07/13/19 08:52 Morphine Sulfate (Morphine Sulfate) 4 mg OT ONCE IV 07/12/19 20:30 07/12/19 22:14 DC 07/12/19 20:40 Ondansetron HCl (Zofran) 4 mg OT ONCE IV 07/12/19 20:30 07/12/19 22:14 DC 07/12/19 20:39 Pantoprazole Sodium (Protonix Iv) 40 mg Q12HR IV 07/13/19 00:30 08/12/19 00:29 07/13/19 08:52 Sodium Chloride 500 ml @ ud STK-MED ONCE IV 07/13/19 01:17 07/13/19 01:19 DC Acetaminophen (Tylenol) 500 mg Q6H PRN PO PAIN 1 - 3 07/13/19 06:00 08/12/19 05:59 07/13/19 05:52 Morphine Sulfate (Morphine Sulfate) 4 mg OT ONCE IV 07/13/19 07:00 07/13/19 08:30 DC 07/13/19 06:57 Sodium Chloride 500 ml @ ud STK-MED ONCE IV 07/13/19 07:54 07/13/19 07:57 DC Ceftriaxone Sodium 1 gm/ Sodium Chloride 100 ml @ 100 mls/hr DAILY IV 07/13/19 11:00 08/12/19 10:59 UNV Course Sepsis Screening Results: Posi: NEGATIVE Sepsis Qualifier/Stage: NO DEFINITE RISK Duration or Total Time Spent w: 60 min Vitals & review Data Vital Sign - Last 24 Hours 07/12/19 07/12/19 07/12/19 07/12/19 10:30 10:30 10:34 11:55 Temp 98.1 98.1 98.1 98.1 Pulse 96 96 96 100 Resp 18 18 18 18 B/P (MAP) 146/78 (100) 106/61 (76) Pulse Ox 97 97 97 O2 Delivery Room Air Room Air 07/12/19 07/12/19 07/12/19 07/12/19 12:59 14:01 14:07 14:27 Temp 98.1 98.3 98.3 Pulse 96 80 83 Resp 18 18 18 B/P (MAP) 105/60 (75) 128/77 (94) 106/65 Pulse Ox 97 96 O2 Delivery Room Air Room Air Room Air 07/12/19 07/12/19 07/12/19 07/12/19 14:49 17:20 17:21 17:39 Temp 98.2 98.6 98.6 98.4 Pulse 83 86 86 76 Resp 18 16 16 18 B/P (MAP) 113/72 104/59 104/59 109/72 07/12/19 07/12/19 07/12/19 07/13/19 19:45 19:45 19:46 00:15 Temp 98.1 98.1 98.1 Pulse 74 74 74 Resp 18 18 18 B/P (MAP) 64/4 (24) 94/43 94/43 (60) Pulse Ox 98 98 O2 Delivery Room Air Room Air Room Air 07/13/19 07/13/19 07/13/19 07/13/19 02:17 02:35 05:09 05:27 Temp 98.1 98.2 98.6 98.6 Pulse 74 77 86 86 Resp 18 18 17 18 B/P (MAP) 95/50 107/65 112/64 112/64 (80) Pulse Ox 98 O2 Delivery Room Air 07/13/19 07/13/19 07/13/19 07/13/19 07:25 07:26 08:20 08:30 Temp 98.3 98.3 98.1 Pulse 90 90 81 Resp 16 16 16 B/P (MAP) 82/41 (55) 85/43 100/63 Pulse Ox 90 O2 Delivery Room Air Room Air 07/13/19 07/13/19 07/13/19 07/13/19 08:45 09:00 09:15 09:53 Temp 98.4 Pulse 87 80 79 71 Resp 16 B/P (MAP) 97/55 91/58 97/59 101/65 Intake and Output 07/12/19 07/12/19 07/13/19 15:00 23:00 07:00 Intake Total 1000 ml 1670 ml 730 ml Balance 1000 ml 1670 ml 730 ml Laboratory Tests Test 07/12/19 11:07 07/12/19 11:25 07/12/19 12:31 07/12/19 14:30 Urine Collection Type VOID Urine Color YELLOW Urine Appearance HAZY Urine Bilirubin NEGATIVE MG/DL Urine Ketones NEGATIVE Urine Specific [place] 1.015 Urine pH 6 Urine Protein NEGATIVE Urine Urobilinogen NORMAL Urine Nitrate NEGATIVE Urine Leukocyte Esterase 25 /uL TRACE Urine Blood NEGATIVE Urine RBC NONE SEEN RBC/HPF Urine WBC 5-10 WBC/HPF Urine Squamous Epithelial Cells FEW #/HPF Urine Bacteria FEW Urine Glucose NORMAL White Blood Count 9.3 10^3/uL Red Blood Count 2.07 10^6/uL Hemoglobin 5.2 g/dL Hematocrit 16.7 % Mean Corpuscular Volume 80.7 fL Mean Corpuscular Hemoglobin 25.1 pg Mean Corpuscular Hemoglobin Concent 31.1 g/dL Red Cell Distribution Width 19.0 % Platelet Count 301 10^3/uL Mean Platelet Volume 9.2 fL Neutrophils (%) (Auto) 73.3 % Lymphocytes (%) (Auto) 19.5 % Monocytes (%) (Auto) 5.5 % Neutrophils # (Auto) 6.8 10^3/uL Lymphocytes # (Auto) 1.81 10^3/uL1 Monocytes # (Auto) 0.5 10^3/uL Absolute Immature Granulocyte (auto 0.02 10^3 u/L Absolute Eosinophils (auto) 0.1 10^3/uL Immature Granulocytes % 0.20 % Eosinophils % 1.2 % Basophils % 0.3 % Basophils # 0.0 10^3/uL Prothrombin Time 10.0 SEC Prothrombin Time INR (Non-Therap) 1.0 Activated Partial Thromboplast Time 20.0 SEC D-Dimer 0.82 mg/L Sodium Level 135 mmol/L Potassium Level 4.0 mmol/L Chloride Level 104.0 mmol/L Carbon Dioxide Level 24.9 mmol/L Anion Gap 10.1 Blood Urea Nitrogen 32 mg/dL Creatinine 0.79 mg/dL Estimated GFR () 92.5 Est GFR (CKD-EPI)(Non-Afr Malagasy) 76.4 BUN/Creatinine Ratio 40.0 Glucose Level 109 mg/dL Calcium Level 7.5 mg/dL Ferritin 5 ng/mL Total Bilirubin 0.1 mg/dL Aspartate Amino Transf (AST/SGOT) 13 U/L Alanine Aminotransferase (ALT/SGPT) 18 U/L Alkaline Phosphatase 52 U/L C-Reactive Protein 0.10 mg/dL Total Protein 5.0 g/dL Albumin 2.3 g/dL Globulin 2.7 Vitamin B12 Level 256 pg/mL Folate 7.2 ng/mL Thyroid Stimulating Hormone (TSH) 5.131 mIU/mL Stool Occult Blood (IFOB) NEGATIVE Erythrocyte Sedimentation Rate 15 mm/hr Absolute Reticulocyte Count 0.0673 10^6uL Percent Reticulocyte Count 3.64 % Amylase Level 29 U/L Lipase 67 U/L Test 4/16/20 23:24 07/12/19 23:26 07/13/19 06:00 Hemoglobin 5.4 g/dL 6.2 g/dL Hematocrit 16.6 % 18.6 % Haptoglobin 130 mg/dL Iron Level 52 ug/dL Total Iron Binding Capacity 250 ug/dL Percent Iron Saturation 20.8 % Unsaturated Iron Binding Capacity 198.0 ug/dL White Blood Count 7.3 10^3/uL Red Blood Count 2.23 10^6/uL Mean Corpuscular Volume 83.4 fL Mean Corpuscular Hemoglobin 27.8 pg Mean Corpuscular Hemoglobin Concent 33.3 g/dL Red Cell Distribution Width 17.2 % Platelet Count 225 10^3/uL Mean Platelet Volume 8.5 fL Neutrophils (%) (Auto) 71.6 % Lymphocytes (%) (Auto) 20.7 % Monocytes (%) (Auto) 5.1 % Neutrophils # (Auto) 5.2 10^3/uL Lymphocytes # (Auto) 1.50 10^3/uL1 Monocytes # (Auto) 0.4 10^3/uL Absolute Immature Granulocyte (auto 0.03 10^3 u/L Absolute Eosinophils (auto) 0.1 10^3/uL Immature Granulocytes % 0.40 % Eosinophils % 1.9 % Basophils % 0.3 % Basophils # 0.0 10^3/uL Current Medications Medications (Trade) Dose Ordered Sig/Marah PRN Reason Start Time Stop Time Status Last Admin Acetaminophen (Tylenol) 500 mg Q6H PRN PAIN 1 - 3 07/13/19 06:00 08/12/19 05:59 07/13/19 05:52 Ceftriaxone Sodium 1 gm/ Sodium Chloride 100 ml @ 100 mls/hr DAILY 07/13/19 11:00 08/12/19 10:59 UNV Folic Acid (Folic Acid) 1 mg DAILY 07/13/19 09:00 08/12/19 08:59 07/13/19 08:52 Pantoprazole Sodium (Protonix Iv) 40 mg Q12HR 07/13/19 00:30 08/12/19 00:29 07/13/19 08:52 Temazepam (Restoril) 30 mg HS PRN INSOMNIA 07/12/19 15:00 08/11/19 14:59 Sepsis Infection Criteria Pres: None LEVEL 1 SEPSIS INFECTION CRITE: Urinary Tract Infection O2 Sat by Pulse Oximetry: 90 Assessment/Plan Assessment/Plan Assessment/Plan 54 yo female with anemia of unknown etiology, abd pains and malaise, UTI - will get double scoped tomorrow - stadol for her HAs - s/p 4 units pRBCs; follow H/H - cont rocephin for her UTI GILDARDO WASSERMAN MD Jul 13, 2019 10:27
--- NOTE | 2019-07-13 10:30 | NUR ---
DISCHARGE PLAN CM AT BEDSIDE TO VISIT WITH PATIENT REGARDING D/C PLAN AND GOALS. PATIENT LIVES AT HOME ALONE INDEPENDENT OF ADLS. SHE CURRENTLY WORKS A [employer]. SHE HAS A NEBULIZER IN PLACE AND DENIES USING OTHER DME. STATES SHE MAY NEED HELP FINANCIALLY WITH D/C MEDS. PATIENT USES [facility]. CM REFERRED PATIENT TO [facility] FOR ADDITIONAL ASSISTANCE WITH MEDICATIONS AND PROVIDED CONTACT INFORMATION FOR [facility]. Leonard SANDOVAL IN [place] NOTIFIED PATIENT WOULD ALSO LIKE TO SPEAK TO HER ABOUT [facility] APPLICATION. DISCHARGE GOAL IS FOR PATIENT TO D/C BACK HOME ALONE TO ROUTINE CARE. CM WILL MONITOR NEEDS UNTIL D/C.
[2019-07-13] MEDS ORDERED: STADOL ONE (10:49)
--- NOTE | 2019-07-13 11:02 | PRM.CONS ---
CONSULTATION CONSULTATION Consult report DATE OF CONSULTATION: July 13, 2019 CHIEF COMPLAINT: Severe anemia HISTORY OF PRESENT ILLNESS: 54-year-old female evaluated in the emergency department for dizziness. She reports to me she was primarily having back pain. Apparently in the previous week she had some nausea and vomiting that is improved she reports she has significant reflux as well as upper abdominal pain. She had had diarrhea a week ago that is now improved. She is never had an EGD or colonoscopy. She denies any bloody or dark stools. Currently she is admitted to the [facility] floor and has been transfused 4 units of PRBCs, with minimal improvement in her hemoglobin. PAST MEDICAL HISTORY: Asthma PAST SURGICAL HISTORY: 1. Leg surgery x2. 2. Hysterectomy, 2010, with previous BTL. 3. Bilateral lower extremity venous surgery. ALLERGIES: 1 fluticasone, 2 salmeterol HOME MEDICATIONS: Pro-air inhaler INPATIENT MEDICATIONS: Per MAR SOCIAL HISTORY: 1. Smokeless tobacco for more than 20 years 2. Former alcohol use. 3. Remote history of marijuana use in the past. FAMILY HISTORY: 1) mother living age 74 2) father living age 66 with coronary artery disease. REVIEW OF SYSTEMS: CONSTITUTIONAL: No fevers or chills, some dizziness ENDOCRINE: Denies thyroid disease diabetes CARDIOVASCULAR: Denies chest pain or shortness of breath PULMONARY: Denies dyspnea or cough ABDOMEN: Epigastric abdominal pain NEUROLOGIC: Denies seizure or loss of consciousness. G/U: Reports dysuria and frequency, believes she has a UTI. PHYSICAL EXAMINATION: VITAL SIGNS: Temperature 98.4, pulse 71, respiratory rate of 16, blood pressure 101/65. HEENT: Normocephalic atraumatic pale mucous membranes NECK: Supple and soft trachea midline HEART: Regular rate and rhythm LUNGS: Clear anteriorly bilaterally ABDOMEN: Bowel sounds positive soft nontender on exam EXTREMITIES: Positive radial pulses, positive dorsal pedal pulses bilaterally. NEURO: No focal findings, cranial nerves II through XII grossly intact SKIN: Warm and dry LABORATORY STUDIES: WBC today 7.3, hemoglobin 6.2, platelet count 225, admission BUN 32 creatinine 0.79. IMAGING STUDIES: CT scan of abdomen and pelvis shows no significant abnormality. SURGICAL ASSESSMENT: 1. Severe anemia 2. History of asthma 3. Prerenal azotemia 4. History of tobacco use. PLAN: 1. The patient is seen and examined, the chart is reviewed. 2. Patient has been transfused 4 units PRBCs total, continue to optimize medical management per the primary service. 3. Considering the patient's age and the severity of the anemia we will plan for EGD and colonoscopy soon. RAMOS BILLS DO Jul 13, 2019 11:02
[2019-07-13 12:02] LABS: BASOPHIL % 0.3 % (0.0-0.2); EOSINOPHIL # 0.3 10^3/uL (0.0-0.2); EOSINOPHIL % 3.2 % (0.0-5.0); LYMPHOCYTES % 23.2 % (24.0-44.0); MEAN CORP HGB 27.9 pg (26-34); MONOCYTES # 0.5 10^3/uL (0.3-0.8); MONOCYTES % 5.8 % (5.0-12.0); NEUTROPHIL # 5.2 10^3/uL (1.8-7.7); NEUTROPHILS % 67.1 % (41.0-85.0); PLATELET COUNT 234 10^3/uL (150-400); RED CELL DISTRIBUTION WIDTH 16.5 % (11.5-14.5)
[2019-07-13] MEDS: ROCEPHIN 1 GM in NS 100ML 100 ML IV SCH (12:37)
[2019-07-13] MEDS ORDERED: MOVIPREP POWDER PACKET PO SCH (13:00)
[2019-07-13] MEDS ORDERED: ZOFRAN IV PRN (17:00)
--- NOTE | 2019-07-13 18:20 | NUR ---
Pt BP 79/39. Dr. Bertrand notified new orders obtained.
--- NOTE | 2019-07-13 19:06 | NUR ---
Pt c/o being lightheaded will going to BSC. BP 114/64. New orders to transfer to ICU, awaiting ICU to call with a room
[2019-07-13] MEDS ORDERED: PROTONIX PO SCH (21:00)
[2019-07-13] MEDS: PROTONIX IV 80 MG in NS 100ML 100 ML IV SCH (22:00)
--- NOTE | 2019-07-13 22:00 | NUR ---
DR IBLLS AT BEDSIDE.
[2019-07-14] VITALS (89 sets, daily range): BP systolic 80–135; BP diastolic 29–93
[2019-07-14] MEDS ORDERED: STADOL IV STA
[2019-07-14] MEDS ORDERED: STADOL ONE (00:09)
--- NOTE | 2019-07-14 00:15 | NUR ---
DR. WASSERMAN NOTIFIED OF LABS AND PATIENT COMPLAINTS OF PAIN. ORDERS RECEIVED AND NOTED. PATIENT MEDICATED WITH 1MG IV STADOL. PATIENT RATES PAIN 11/04
[2019-07-14] MEDS ORDERED: NS 250ML 250 ML IV ONE (00:24)
[2019-07-14] MEDS ORDERED: HNS 1000ML/KCL 20MEQ 1,000 ML ONE (00:25)
[2019-07-14] MEDS ORDERED: NS 100ML 100 ML IV ONE ×2 (03:21→15:11)
[2019-07-14] MEDS ORDERED: PROTONIX IV IV ONE ×2 (03:21→15:12)
--- NOTE | 2019-07-14 04:00 | NUR ---
ASSISTED TO [facility] TO VOID, 700 ML OF CLEAR URINE NOTED
[2019-07-14] MEDS: HNS 1000ML/KCL 20MEQ 1,000 ML IV SCH ×2 (04:30→20:23)
[2019-07-14 06:14] LABS: BASOPHIL % 0.4 % (0.0-0.2); EOSINOPHIL # 0.3 10^3/uL (0.0-0.2); EOSINOPHIL % 5.4 % (0.0-5.0); LYMPHOCYTES # 1.45 10^3/uL1 (1.0-4.8); LYMPHOCYTES % 26.8 % (24.0-44.0); MEAN CORP HGB 29.4 pg (26-34); MONOCYTES # 0.4 10^3/uL (0.3-0.8); MONOCYTES % 6.5 % (5.0-12.0); NEUTROPHIL # 3.3 10^3/uL (1.8-7.7); NEUTROPHILS % 60.7 % (41.0-85.0); PLATELET COUNT 203 10^3/uL (150-400); RED CELL DISTRIBUTION WIDTH 15.9 % (11.5-14.5)
[2019-07-14 06:23] LABS: CALCIUM 7.1 mg/dL (8.4-10.5); CARBON DIOXIDE 27.3 mmol/L (20.0-32)
[2019-07-14] MEDS ORDERED: WATER ONE (07:28)
--- NOTE | 2019-07-14 07:35 | NUR ---
Consent signed for surgery. OR staff at bedside to take pt for procedure.
[2019-07-14] MEDS ORDERED: LACTATED RINGERS 1,000 ML ONE (07:44)
[2019-07-14] MEDS ORDERED: DIPRIVAN IV ONE ×3 (07:45→09:17)
[2019-07-14] MEDS ORDERED: VERSED ONE (07:45)
[2019-07-14] MEDS: PROTONIX IV 80 MG in NS 100ML 100 ML IV SCH ×2 (08:00→15:20)
[2019-07-14] MEDS ORDERED: GENASYME PO PRN (09:30)
--- NOTE | 2019-07-14 09:48 | PRM.OPH ---
OPERATIVE REPORT OPERATIVE REPORT DATE OF SURGERY: July 14, 2019 PREOPERATIVE DIAGNOSIS: Acute blood loss anemia POSTOPERATIVE DIAGNOSES: 1. Peptic ulcer disease with bleeding 2. Incomplete prep, retained solid stool. 3. Check path on colon polyps SURGEON: Ramos Shrestha DO WEATHERIZATION OPERATIONS MANAGER: OR staff ANESTHESIA: Total intravenous anesthesia by Angelina Phillips CRNA PROCEDURES PERFORMED: 1. Esophagogastroduodenoscopy with biopsy. 2. Flex sig to 70 cm with biopsy of colon polyps. SPECIMENS: 1. Distal gastric biopsy to her ulcer 2. Mid stomach biopsy by large ulcer. 3. Biopsy of descending colon polyps 4. Biopsy of rectal polyps. ESTIMATED BLOOD LOSS: 3 mL. COUNTS: At the completion of the case, the counts were correct per OR staff. DESCRIPTION OF PROCEDURE: Ms. Koenig, is a 54-year-old female known from previous evaluation. Prior to procedure informed sent was obtained. At the time procedure she is taken the operative suite placed spine position. After timeout placed left lateral recumbent position. With excellent sedation esophagogastroduodenoscope is advanced transorally with pneumo insufflation distally into the second portion of the duodenum. Once the duodenum is adequately visualized camera slow withdrawn to facilitate visualization of the duodenal bulb and the pylorus, and the distal stomach to mature and almost healed ulcers are identified near the pylorus. The retroflex maneuver is performed and a large ulcer is identified posteriorly that appears to have hemostasis. Biopsies were obtained near the ulcer bed. The camera is withdrawn to allow visualization of the fundus and in the GE junction with air within normal limits. Carafate is brought on the field and placed through the scope on the larger proximal ulcer and irrigated with saline. Camera is withdrawn to the proximal stomach was decompressed and scope was withdrawn distal mid and proximal esophagus are within normal limits. Vocal cords are visualized within normal limits. Cameras room procedure discontinued. Patient remains in the OR. Timeout was previously completed. Rectal exam was performed there are no masses Scope was advanced transanally with pneumo insufflation proximally liquid dark stool is initially encountered in the sigmoid and descending colon there are multiple areas of firm fecal material, which limited the ability to pass the scope proximally. As there is some retained solid and liquid stool the camera is advanced approximately 2 around 70 to 75 cm. Water is placed to allow mob ilization of the remaining retained stool. Camera slowly withdrawn to facilitate visualization in the descending colon 2 separate polyps identified that are biopsied with a cold forceps. Cameras withdrawn to the main to the descending colon and sigmoid any solid stool identified is further irrigated to allow to pass. In the distal sigmoid proximal rectum 2 small polyps identified that are removed with a cold forceps. Camera is withdrawn to the distal rectum where solid stool is identified in the retroflex maneuver is not performed the area is irrigated the colonoscope was removed. Patient tolerated this procedure as well there are no acute complication noted. Findings have been discussed with Dr. Bertrand. RAMOS SHRESTHA DO Jul 14, 2019 09:48
--- NOTE | 2019-07-14 09:55 | NUR ---
Pt back from surgery at this time. Will continue to monitor pt
[2019-07-14] MEDS ORDERED: FOLIC ACID PO ONE (10:10)
[2019-07-14] MEDS: FOLIC ACID PO SCH (10:17)
[2019-07-14] MEDS: ROCEPHIN 1 GM in NS 100ML 100 ML IV SCH (10:17)
[2019-07-14] MEDS: ZITHROMAX PO SCH (11:39)
--- NOTE | 2019-07-14 11:53 | NUR ---
Pt states she is allergic to tramadol after she had taken the tablet. Pt was handed a cup and told what the medication was she stated at that time she is allergic, I told her it was currently listed. As I reached for the pill cup she took the pill and said it just gives me a rash. Dr. Bertrand notified will continue to monitor pt.
[2019-07-14] MEDS ORDERED: ULTRAM PO ONE (12:00)
[2019-07-14 12:05] LABS: BASOPHIL % 0.4 % (0.0-0.2); EOSINOPHIL # 0.3 10^3/uL (0.0-0.2); EOSINOPHIL % 5.1 % (0.0-5.0); LYMPHOCYTES # 1.34 10^3/uL1 (1.0-4.8); LYMPHOCYTES % 24.5 % (24.0-44.0); MONOCYTES # 0.4 10^3/uL (0.3-0.8); MONOCYTES % 7.5 % (5.0-12.0); NEUTROPHIL # 3.4 10^3/uL (1.8-7.7); PLATELET COUNT 182 10^3/uL (150-400); RED CELL DISTRIBUTION WIDTH 16.3 % (11.5-14.5)
--- NOTE | 2019-07-14 12:13 | PRM.PN ---
Subjective Subjective Date: Jul 14, 2019 Time: 10:45 Subjective Pt doing ok; s/p scope Patient History: Patient reports no known family medical history. VTE VTE Risk Total Score: 1 VTE Risk Score VTE Risk: Score 0-1 = Low Risk (Aggressive mobilization; early ambulation; no VTE prophylaxis required) Score 2: Moderate Risk (Intermittent/Pneumatic Compression Device OR Lovenox/Heparin/Coumadin) Score 3-4: High Risk (Intermittent/Pneumatic Compression Device AND Lovenox/Heparin/Coumadin) Score > or =5: Highest Risk (Intermittent/Pneumatic Compression Device AND Lovenox/Heparin/Coumadin) Antico:Hep/LMWH/Coum/Xarelto: No Mechanical device ordered: Yes Reasons not ordering prophylax: Bleeding Review of Systems Constitutional: No: Fever, Chills, Sweats, Weakness Eyes: No: Pain, Vision change, Conjunctivae inflammation, Eyelid inflammation ENT: No: Ear pain, Ear discharge, Nose pain, Nose discharge Respiratory: No: Cough, Dry, Shortness of breath, SOB with excertion Cardiovascular: No: Chest Pain, Palpitations, Orthopnea Gastrointestinal: Nausea; No: Vomiting, Diarrhea Genitourinary: No Dysuria, No Frequency, No Incontinence Musculoskeletal: No: neck pain, shoulder pain, arm pain Skin: No: Rash, Lesions, Jaundice, Bruising Neurological: No: Numbness, Incoordination, Change in speech, Confusion, Seizures Allergies: Coded Allergies: Sulfa (Sulfonamide Antibiotics) (Verified Allergy, Unknown, 07/14/19) fluticasone (Verified Allergy, Unknown, Swelling, 09/13/16) salmeterol (Verified Allergy, Unknown, Swelling, 09/13/16) Scheduled PRN Albuterol Sulfate (Ventolin Hfa), 18 GM IH PRN PRN for SHORTNESS OF BREATH, (Reported) Objective Vitals and I/O Vital Sign - Last 24 Hours 07/12/19 07/12/19 07/12/19 07/12/19 10:30 10:30 10:34 11:55 Temp 98.1 98.1 98.1 98.1 Pulse 96 96 96 100 Resp 18 18 18 18 B/P (MAP) 146/78 (100) 106/61 (76) Pulse Ox 97 97 97 O2 Delivery Room Air Room Air 07/12/19 07/12/19 07/12/19 4/16/20 12:59 14:01 14:07 14:27 Temp 98.1 98.3 98.3 Pulse 96 80 83 Resp 18 18 18 B/P (MAP) 105/60 (75) 128/77 (94) 106/65 Pulse Ox 97 96 O2 Delivery Room Air Room Air Room Air 07/12/19 07/12/19 07/12/19 07/12/19 14:49 17:20 17:21 17:39 Temp 98.2 98.6 98.6 98.4 Pulse 83 86 86 76 Resp 18 16 16 18 B/P (MAP) 113/72 104/59 104/59 109/72 07/12/19 07/12/19 07/12/19 07/13/19 19:45 19:45 19:46 00:15 Temp 98.1 98.1 98.1 Pulse 74 74 74 Resp 18 18 18 B/P (MAP) 64/4 (24) 94/43 94/43 (60) Pulse Ox 98 98 O2 Delivery Room Air Room Air Room Air 07/13/19 07/13/19 07/13/19 07/13/19 02:17 02:35 05:09 05:27 Temp 98.1 98.2 98.6 98.6 Pulse 74 77 86 86 Resp 18 18 17 18 B/P (MAP) 95/50 107/65 112/64 112/64 (80) Pulse Ox 98 O2 Delivery Room Air 07/13/19 07/13/19 07/13/19 07/13/19 07:25 07:26 08:20 08:30 Temp 98.3 98.3 98.1 Pulse 90 90 81 Resp 16 16 16 B/P (MAP) 82/41 (55) 85/43 100/63 Pulse Ox 90 O2 Delivery Room Air Room Air 07/13/19 07/13/19 07/13/19 07/13/19 08:45 09:00 09:15 09:53 Temp 98.4 Pulse 87 80 79 71 Resp 16 B/P (MAP) 97/55 91/58 97/59 101/65 Intake and Output 07/12/19 07/12/19 07/13/19 15:00 23:00 07:00 Intake Total 1000 ml 1670 ml 730 ml Balance 1000 ml 1670 ml 730 ml General: Alert, Oriented X3, Cooperative, No acute distress HEENT: Atraumatic, PERRLA, EOMI, Mucous membr. moist/pink Neck: Supple, No JVD, No thyromegaly Lungs: Clear to auscultation, Normal air movement Heart: Normal S1, Normal S2 Abdomen: Normal bowel sounds, Soft Extremities: No clubbing, No cyanosis, No edema Skin: No rashes, No breakdown, No significant lesion Neuro: Normal speech Psych/Mental Status: Mental status NL, Mood NL All Results(Lab/Rad) Laboratory Tests Test 07/12/19 11:07 07/12/19 11:25 07/12/19 12:31 07/12/19 14:30 Urine Collection Type VOID Urine Color YELLOW Urine Appearance HAZY Urine Bilirubin NEGATIVE MG/DL Urine Ketones NEGATIVE Urine Specific [place] 1.015 Urine pH 6 Urine Protein NEGATIVE Urine Urobilinogen NORMAL Urine Nitrate NEGATIVE Urine Leukocyte Esterase 25 /uL TRACE Urine Blood NEGATIVE Urine RBC NONE SEEN RBC/HPF Urine WBC 5-10 WBC/HPF Urine Squamous Epithelial Cells FEW #/HPF Urine Bacteria FEW Urine Glucose NORMAL White Blood Count 9.3 10^3/uL Red Blood Count 2.07 10^6/uL Hemoglobin 5.2 g/dL Hematocrit 16.7 % Mean Corpuscular Volume 80.7 fL Mean Corpuscular Hemoglobin 25.1 pg Mean Corpuscular Hemoglobin Concent 31.1 g/dL Red Cell Distribution Width 19.0 % Platelet Count 301 10^3/uL Mean Platelet Volume 9.2 fL Neutrophils (%) (Auto) 73.3 % Lymphocytes (%) (Auto) 19.5 % Monocytes (%) (Auto) 5.5 % Neutrophils # (Auto) 6.8 10^3/uL Lymphocytes # (Auto) 1.81 10^3/uL1 Monocytes # (Auto) 0.5 10^3/uL Absolute Immature Granulocyte (auto 0.02 10^3 u/L Absolute Eosinophils (auto) 0.1 10^3/uL Immature Granulocytes % 0.20 % Eosinophils % 1.2 % Basophils % 0.3 % Basophils # 0.0 10^3/uL Prothrombin Time 10.0 SEC Prothrombin Time INR (Non-Therap) 1.0 Activated Partial Thromboplast Time 20.0 SEC D-Dimer 0.82 mg/L Sodium Level 135 mmol/L Potassium Level 4.0 mmol/L Chloride Level 104.0 mmol/L Carbon Dioxide Level 24.9 mmol/L Anion Gap 10.1 Blood Urea Nitrogen 32 mg/dL Creatinine 0.79 mg/dL Estimated GFR () 92.5 Est GFR (CKD-EPI)(Non-Afr [place]an) 76.4 BUN/Creatinine Ratio 40.0 Glucose Level 109 mg/dL Calcium Level 7.5 mg/dL Ferritin 5 ng/mL Total Bilirubin 0.1 mg/dL Aspartate Amino Transf (AST/SGOT) 13 U/L Alanine Aminotransferase (ALT/SGPT) 18 U/L Alkaline Phosphatase 52 U/L C-Reactive Protein 0.10 mg/dL Total Protein 5.0 g/dL Albumin 2.3 g/dL Globulin 2.7 Vitamin B12 Level 256 pg/mL Folate 7.2 ng/mL Thyroid Stimulating Hormone (TSH) 5.131 mIU/mL Stool Occult Blood (IFOB) NEGATIVE Blood Smear Pathologist Review Pending Erythrocyte Sedimentation Rate 15 mm/hr Absolute Reticulocyte Count 0.0673 10^6uL Percent Reticulocyte Count 3.64 % Amylase Level 29 U/L Lipase 67 U/L Test 07/12/19 23:24 07/12/19 23:26 07/13/19 06:00 Hemoglobin 5.4 g/dL 6.2 g/dL Hematocrit 16.6 % 18.6 % Haptoglobin 130 mg/dL Iron Level 52 ug/dL Total Iron Binding Capacity 250 ug/dL Percent Iron Saturation 20.8 % Unsaturated Iron Binding Capacity 198.0 ug/dL White Blood Count 7.3 10^3/uL Red Blood Count 2.23 10^6/uL Mean Corpuscular Volume 83.4 fL Mean Corpuscular Hemoglobin 27.8 pg Mean Corpuscular Hemoglobin Concent 33.3 g/dL Red Cell Distribution Width 17.2 % Platelet Count 225 10^3/uL Mean Platelet Volume 8.5 fL Neutrophils (%) (Auto) 71.6 % Lymphocytes (%) (Auto) 20.7 % Monocytes (%) (Auto) 5.1 % Neutrophils # (Auto) 5.2 10^3/uL Lymphocytes # (Auto) 1.50 10^3/uL1 Monocytes # (Auto) 0.4 10^3/uL Absolute Immature Granulocyte (auto 0.03 10^3 u/L Absolute Eosinophils (auto) 0.1 10^3/uL Immature Granulocytes % 0.40 % Eosinophils % 1.9 % Basophils % 0.3 % Basophils # 0.0 10^3/uL Current Medications Medications (Trade) Dose Ordered Sig/Marah Route PRN Reason Start Time Stop Time Status Last Admin Dose Admin Sodium Chloride 1,000 ml @ ud STK-MED ONCE .ROUTE 07/12/19 10:54 07/12/19 10:57 DC Ondansetron HCl (Zofran) 4 mg STK-MED ONCE .ROUTE 07/12/19 10:54 07/12/19 10:57 DC Ketorolac Tromethamine (Toradol) 30 mg STK-MED ONCE .ROUTE 07/12/19 10:54 07/12/19 10:57 DC Sodium Chloride 1,000 ml @ 1,200 mls/hr Q50M STAT IV 07/12/19 11:02 07/12/19 11:51 DC 07/12/19 11:28 Ondansetron HCl (Zofran) 4 mg STAT STAT IV 07/12/19 11:02 07/12/19 11:06 DC 07/12/19 11:29 Ketorolac Tromethamine (Toradol) 30 mg STAT STAT IV 07/12/19 11:02 07/12/19 11:06 DC 07/12/19 11:28 Ceftriaxone Sodium 1 gm/ Sodium Chloride 100 ml @ 100 mls/hr STAT STAT IV 07/12/19 12:33 07/12/19 13:32 DC 07/12/19 12:41 Ceftriaxone Sodium (Rocephin) 1 gm STK-MED ONCE .ROUTE 07/12/19 12:36 07/12/19 12:38 DC Sodium Chloride 500 ml @ ud STK-MED ONCE IV 07/12/19 14:18 07/12/19 14:20 DC Morphine Sulfate (Morphine Sulfate) 4 mg OT STAT IV 07/12/19 14:56 07/12/19 15:44 DC 07/12/19 14:56 Temazepam (Restoril) 30 mg HS PRN PO INSOMNIA 07/12/19 15:00 08/11/19 14:59 Folic Acid (Folic Acid) 1 mg DAILY PO 07/13/19 09:00 08/12/19 08:59 07/13/19 08:52 Morphine Sulfate (Morphine Sulfate) 4 mg OT ONCE IV 07/12/19 20:30 07/12/19 22:14 DC 07/12/19 20:40 Ondansetron HCl (Zofran) 4 mg OT ONCE IV 07/12/19 20:30 07/12/19 22:14 DC 07/12/19 20:39 Pantoprazole Sodium (Protonix Iv) 40 mg Q12HR IV 07/13/19 00:30 08/12/19 00:29 07/13/19 08:52 Sodium Chloride 500 ml @ STK-MED ONCE IV 07/13/19 01:17 07/13/19 01:19 DC Acetaminophen (Tylenol) 500 mg Q6H PRN PO PAIN 1 - 3 07/13/19 06:00 08/12/19 05:59 07/13/19 05:52 Morphine Sulfate (Morphine Sulfate) 4 mg OT ONCE IV 07/13/19 07:00 07/13/19 08:30 DC 07/13/19 06:57 Sodium Chloride 500 ml @ STK-MED ONCE IV 07/13/19 07:54 07/13/19 07:57 DC Ceftriaxone Sodium 1 gm/ Sodium Chloride 100 ml @ 100 mls/hr DAILY IV 07/13/19 11:00 08/12/19 10:59 UNV Course Sepsis Screening Results: Posi: NEGATIVE Sepsis Qualifier/Stage: NO DEFINITE RISK Duration or Total Time Spent w: 60 min Vitals & review Data Vital Sign - Last 24 Hours 07/12/19 07/12/19 07/12/19 07/12/19 10:30 10:30 10:34 11:55 Temp 98.1 98.1 98.1 98.1 Pulse 96 96 96 100 Resp 18 18 18 18 B/P (MAP) 146/78 (100) 106/61 (76) Pulse Ox 97 97 97 O2 Delivery Room Air Room Air 07/12/19 07/12/19 07/12/19 07/12/19 12:59 14:01 14:07 14:27 Temp 98.1 98.3 98.3 Pulse 96 80 83 Resp 18 18 18 B/P (MAP) 105/60 (75) 128/77 (94) 106/65 Pulse Ox 97 96 O2 Delivery Room Air Room Air Room Air 07/12/19 07/12/19 07/12/19 07/12/19 14:49 17:20 17:21 17:39 Temp 98.2 98.6 98.6 98.4 Pulse 83 86 86 76 Resp 18 16 16 18 B/P (MAP) 113/72 104/59 104/59 109/72 07/12/19 07/12/19 07/12/19 07/13/19 19:45 19:45 19:46 00:15 Temp 98.1 98.1 98.1 Pulse 74 74 74 Resp 18 18 18 B/P (MAP) 64/4 (24) 94/43 94/43 (60) Pulse Ox 98 98 O2 Delivery Room Air Room Air Room Air 07/13/19 07/13/19 07/13/19 07/13/19 02:17 02:35 05:09 05:27 Temp 98.1 98.2 98.6 98.6 Pulse 74 77 86 86 Resp 18 18 17 18 B/P (MAP) 95/50 107/65 112/64 112/64 (80) Pulse Ox 98 O2 Delivery Room Air 07/13/19 07/13/19 07/13/19 07/13/19 07:25 07:26 08:20 08:30 Temp 98.3 98.3 98.1 Pulse 90 90 81 Resp 16 16 16 B/P (MAP) 82/41 (55) 85/43 100/63 Pulse Ox 90 O2 Delivery Room Air Room Air 07/13/19 07/13/19 07/13/19 07/13/19 08:45 09:00 09:15 09:53 Temp 98.4 Pulse 87 80 79 71 Resp 16 B/P (MAP) 97/55 91/58 97/59 101/65 Intake and Output 07/12/19 07/12/19 07/13/19 15:00 23:00 07:00 Intake Total 1000 ml 1670 ml 730 ml Balance 1000 ml 1670 ml 730 ml Laboratory Tests Test 07/12/19 11:07 07/12/19 11:25 07/12/19 12:31 07/12/19 14:30 Urine Collection Type VOID Urine Color YELLOW Urine Appearance HAZY Urine Bilirubin NEGATIVE MG/DL Urine Ketones NEGATIVE Urine Specific [place] 1.015 Urine pH 6 Urine Protein NEGATIVE Urine Urobilinogen NORMAL Urine Nitrate NEGATIVE Urine Leukocyte Esterase 25 /uL TRACE Urine Blood NEGATIVE Urine RBC NONE SEEN RBC/HPF Urine WBC 5-10 WBC/HPF Urine Squamous Epithelial Cells FEW #/HPF Urine Bacteria FEW Urine Glucose NORMAL White Blood Count 9.3 10^3/uL Red Blood Count 2.07 10^6/uL Hemoglobin 5.2 g/dL Hematocrit 16.7 % Mean Corpuscular Volume 80.7 fL Mean Corpuscular Hemoglobin 25.1 pg Mean Corpuscular Hemoglobin Concent 31.1 g/dL Red Cell Distribution Width 19.0 % Platelet Count 301 10^3/uL Mean Platelet Volume 9.2 fL Neutrophils (%) (Auto) 73.3 % Lymphocytes (%) (Auto) 19.5 % Monocytes (%) (Auto) 5.5 % Neutrophils # (Auto) 6.8 10^3/uL Lymphocytes # (Auto) 1.81 10^3/uL1 Monocytes # (Auto) 0.5 10^3/uL Absolute Immature Granulocyte (auto 0.02 10^3 u/L Absolute Eosinophils (auto) 0.1 10^3/uL Immature Granulocytes % 0.20 % Eosinophils % 1.2 % Basophils % 0.3 % Basophils # 0.0 10^3/uL Prothrombin Time 10.0 SEC Prothrombin Time INR (Non-Therap) 1.0 Activated Partial Thromboplast Time 20.0 SEC D-Dimer 0.82 mg/L Sodium Level 135 mmol/L Potassium Level 4.0 mmol/L Chloride Level 104.0 mmol/L Carbon Dioxide Level 24.9 mmol/L Anion Gap 10.1 Blood Urea Nitrogen 32 mg/dL Creatinine 0.79 mg/dL Estimated GFR () 92.5 Est GFR (CKD-EPI)(Non-Afr [place]an) 76.4 BUN/Creatinine Ratio 40.0 Glucose Level 109 mg/dL Calcium Level 7.5 mg/dL Ferritin 5 ng/mL Total Bilirubin 0.1 mg/dL Aspartate Amino Transf (AST/SGOT) 13 U/L Alanine Aminotransferase (ALT/SGPT) 18 U/L Alkaline Phosphatase 52 U/L C-Reactive Protein 0.10 mg/dL Total Protein 5.0 g/dL Albumin 2.3 g/dL Globulin 2.7 Vitamin B12 Level 256 pg/mL Folate 7.2 ng/mL Thyroid Stimulating Hormone (TSH) 5.131 mIU/mL Stool Occult Blood (IFOB) NEGATIVE Erythrocyte Sedimentation Rate 15 mm/hr Absolute Reticulocyte Count 0.0673 10^6uL Percent Reticulocyte Count 3.64 % Amylase Level 29 U/L Lipase 67 U/L Test 07/12/19 23:24 07/12/19 23:26 07/13/19 06:00 Hemoglobin 5.4 g/dL 6.2 g/dL Hematocrit 16.6 % 18.6 % Haptoglobin 130 mg/dL Iron Level 52 ug/dL Total Iron Binding Capacity 250 ug/dL Percent Iron Saturation 20.8 % Unsaturated Iron Binding Capacity 198.0 ug/dL White Blood Count 7.3 10^3/uL Red Blood Count 2.23 10^6/uL Mean Corpuscular Volume 83.4 fL Mean Corpuscular Hemoglobin 27.8 pg Mean Corpuscular Hemoglobin Concent 33.3 g/dL Red Cell Distribution Width 17.2 % Platelet Count 225 10^3/uL Mean Platelet Volume 8.5 fL Neutrophils (%) (Auto) 71.6 % Lymphocytes (%) (Auto) 20.7 % Monocytes (%) (Auto) 5.1 % Neutrophils # (Auto) 5.2 10^3/uL Lymphocytes # (Auto) 1.50 10^3/uL1 Monocytes # (Auto) 0.4 10^3/uL Absolute Immature Granulocyte (auto 0.03 10^3 u/L Absolute Eosinophils (auto) 0.1 10^3/uL Immature Granulocytes % 0.40 % Eosinophils % 1.9 % Basophils % 0.3 % Basophils # 0.0 10^3/uL Current Medications Medications (Trade) Dose Ordered Sig/Marah PRN Reason Start Time Stop Time Status Last Admin Acetaminophen (Tylenol) 500 mg Q6H PRN PAIN 1 - 3 07/13/19 06:00 08/12/19 05:59 07/13/19 05:52 Ceftriaxone Sodium 1 gm/ Sodium Chloride 100 ml @ 100 mls/hr DAILY 07/13/19 11:00 08/12/19 10:59 UNV Folic Acid (Folic Acid) 1 mg DAILY 07/13/19 09:00 08/12/19 08:59 07/13/19 08:52 Pantoprazole Sodium (Protonix Iv) 40 mg Q12HR 07/13/19 00:30 08/12/19 00:29 07/13/19 08:52 Temazepam (Restoril) 30 mg HS PRN INSOMNIA 07/12/19 15:00 08/11/19 14:59 Sepsis Infection Criteria Pres: None LEVEL 1 SEPSIS INFECTION CRITE: Urinary Tract Infection O2 Sat by Pulse Oximetry: 97 Oxygen Flow Rate: 2 Assessment/Plan Assessment/Plan Assessment/Plan 54 yo female with PUD/acute anemia with H pylori, UTI - on abx for her UTI and H pylori - s/p 6 units pRBCs and 1 FFP; Hgb trending back up; will follow GILDARDO WASSERMAN MD Jul 14, 2019 12:13
--- NOTE | 2019-07-14 13:00 | NUR ---
No s/s of distress from pt, no skin rash noted, pt denies needs at this time
--- NOTE | 2019-07-14 14:17 | NUR ---
Dr. Shrestha at bedside, pts hand swollen and ring stuck on left ring finger. Dr. Shrestha cut off the ring.
--- NOTE | 2019-07-14 18:00 | NUR ---
Pt ambulated in HW in front of nurses station and back to room. Pt tolerated well, did state she felt a little lightheaded. Pt back to bed will continue to monitor
[2019-07-14] MEDS: TYLENOL PO PRN (20:23)
[2019-07-14] MEDS: RESTORIL PO PRN (20:23)
[2019-07-14] MEDS ORDERED: MORPHINE SULFATE ONE (22:11)
--- NOTE | 2019-07-14 22:15 | NUR ---
ABDOMINAL PAIN TELEPHONE ORDER TO DR WASSERMAN. ABDOMINAL PAIN COMPLAINT OF PATIENT, 10/10 PAIN SCALE. PATIENT IS CRYING AND SHOUTING IN PAIN. RECEIVED ORDER FOR A ONE TIME DOSE OF MORPHINE 4 MG IV. RBTO
[2019-07-14] MEDS ORDERED: MORPHINE SULFATE IV ONE (22:30)
[2019-07-15] VITALS (71 sets, daily range): BP systolic 92–144; BP diastolic 31–80
[2019-07-15] MEDS ORDERED: PROTONIX IV IV ONE ×3 (01:35→11:06)
[2019-07-15] MEDS ORDERED: NS 100ML 100 ML IV ONE ×2 (01:37→11:05)
[2019-07-15] MEDS: PROTONIX IV 80 MG in NS 100ML 100 ML IV SCH ×2 (01:50→11:19)
[2019-07-15 06:11] LABS: BASOPHIL % 0.6 % (0.0-0.2); EOSINOPHIL # 0.3 10^3/uL (0.0-0.2); EOSINOPHIL % 5.8 % (0.0-5.0); LYMPHOCYTES # 1.59 10^3/uL1 (1.0-4.8); LYMPHOCYTES % 30.6 % (24.0-44.0); MEAN CORP HGB 28.6 pg (26-34); MONOCYTES # 0.4 10^3/uL (0.3-0.8); MONOCYTES % 7.7 % (5.0-12.0); NEUTROPHIL # 2.9 10^3/uL (1.8-7.7); NEUTROPHILS % 55.1 % (41.0-85.0); PLATELET COUNT 236 10^3/uL (150-400); RED CELL DISTRIBUTION WIDTH 16.6 % (11.5-14.5)
[2019-07-15 06:23] LABS: CALCIUM 7.5 mg/dL (8.4-10.5); CARBON DIOXIDE 29.4 mmol/L (20.0-32)
[2019-07-15] MEDS: ZITHROMAX PO SCH (08:31)
[2019-07-15] MEDS: ROCEPHIN 1 GM in NS 100ML 100 ML IV SCH (08:31)
[2019-07-15] MEDS: FOLIC ACID PO SCH (08:31)
[2019-07-15] MEDS: TYLENOL PO PRN ×2 (08:31→20:20)
[2019-07-15] MEDS: HNS 1000ML/KCL 20MEQ 1,000 ML IV SCH (11:46)
--- NOTE | 2019-07-15 12:14 | PRM.PN ---
PROGRESS NOTE SUBJECTIVE DATE: July 15, 2019 SUBJECTIVE: 54-year-old female in no acute distress resting comfortably in her room in the ICU. OBJECTIVE: VITAL SIGNS: Last temp 98.3 current pulse 72, respiratory rate approximately 12, blood pressure 98/60. ABDOMEN: Bowel sounds positive and soft no significant tenderness on exam. LABORATORY DATA: White blood count today 5.2, hemoglobin 7.8, platelet count 236 BUN today of 10 creatinine is 0.65. ASSESSMENT: 1. Acute blood loss anemia secondary to peptic ulcer disease. 2. History of tobacco use. PLAN: 1. The patient is seen and examined, the chart is reviewed. Continue IV PPI until the 48-hour cindy, then changed to 40 mg p.o. twice daily of Protonix. Patient's been advanced to full liquid diet at this point, continue medical management per the primary service. RAMOS BILLS DO Jul 15, 2019 12:14
--- NOTE | 2019-07-15 12:37 | PRM.PN ---
Subjective Subjective Date: Jul 15, 2019 Time: 12:30 Subjective Pt tolerating liquids; no vomiting Patient History: Patient reports no known family medical history. VTE VTE Risk Total Score: 1 VTE Risk Score VTE Risk: Score 0-1 = Low Risk (Aggressive mobilization; early ambulation; no VTE prophylaxis required) Score 2: Moderate Risk (Intermittent/Pneumatic Compression Device OR Lovenox/Heparin/Coumadin) Score 3-4: High Risk (Intermittent/Pneumatic Compression Device AND Lovenox/Heparin/Coumadin) Score > or =5: Highest Risk (Intermittent/Pneumatic Compression Device AND Lovenox/Heparin/Coumadin) Antico:Hep/LMWH/Coum/Xarelto: No Mechanical device ordered: Yes Reasons not ordering prophylax: Bleeding Review of Systems Constitutional: No: Fever, Chills, Sweats, Weakness Eyes: No: Pain, Vision change, Conjunctivae inflammation, Eyelid inflammation ENT: No: Ear pain, Ear discharge, Nose pain, Nose discharge Respiratory: No: Cough, Dry, Shortness of breath, SOB with excertion Cardiovascular: No: Chest Pain, Palpitations, Orthopnea Gastrointestinal: No: Vomiting, Diarrhea Genitourinary: No Dysuria, No Frequency, No Incontinence Musculoskeletal: No: neck pain, shoulder pain, arm pain Skin: No: Rash, Lesions, Jaundice, Bruising Neurological: No: Numbness, Incoordination, Change in speech, Confusion, Seizures Allergies: Coded Allergies: Sulfa (Sulfonamide Antibiotics) (Verified Allergy, Unknown, 07/14/19) fluticasone (Verified Allergy, Unknown, Swelling, 09/13/16) salmeterol (Verified Allergy, Unknown, Swelling, 09/13/16) Scheduled PRN Albuterol Sulfate (Ventolin Hfa), 18 GM IH PRN PRN for SHORTNESS OF BREATH, (Reported) Objective Vitals and I/O Vital Sign - Last 24 Hours 07/12/19 07/12/19 07/12/19 07/12/19 10:30 10:30 10:34 11:55 Temp 98.1 98.1 98.1 98.1 Pulse 96 96 96 100 Resp 18 18 18 18 B/P (MAP) 146/78 (100) 106/61 (76) Pulse Ox 97 97 97 O2 Delivery Room Air Room Air 07/12/19 07/12/19 07/12/1907/11/20 12:59 14:01 14:07 14:27 Temp 98.1 98.3 98.3 Pulse 96 80 83 Resp 18 18 18 B/P (MAP) 105/60 (75) 128/77 (94) 106/65 Pulse Ox 97 96 O2 Delivery Room Air Room Air Room Air 07/12/19 07/12/19 07/12/19 07/12/19 14:49 17:20 17:21 17:39 Temp 98.2 98.6 98.6 98.4 Pulse 83 86 86 76 Resp 18 16 16 18 B/P (MAP) 113/72 104/59 104/59 109/72 07/12/19 07/12/19 07/12/19 07/13/19 19:45 19:45 19:46 00:15 Temp 98.1 98.1 98.1 Pulse 74 74 74 Resp 18 18 18 B/P (MAP) 64/4 (24) 94/43 94/43 (60) Pulse Ox 98 98 O2 Delivery Room Air Room Air Room Air 07/13/19 07/13/19 07/13/19 07/13/19 02:17 02:35 05:09 05:27 Temp 98.1 98.2 98.6 98.6 Pulse 74 77 86 86 Resp 18 18 17 18 B/P (MAP) 95/50 107/65 112/64 112/64 (80) Pulse Ox 98 O2 Delivery Room Air 07/13/19 07/13/19 07/13/19 07/13/19 07:25 07:26 08:20 08:30 Temp 98.3 98.3 98.1 Pulse 90 90 81 Resp 16 16 16 B/P (MAP) 82/41 (55) 85/43 100/63 Pulse Ox 90 O2 Delivery Room Air Room Air 07/13/19 07/13/19 07/13/19 07/13/19 08:45 09:00 09:15 09:53 Temp 98.4 Pulse 87 80 79 71 Resp 16 B/P (MAP) 97/55 91/58 97/59 101/65 Intake and Output 07/12/19 07/12/19 07/13/19 15:00 23:00 07:00 Intake Total 1000 ml 1670 ml 730 ml Balance 1000 ml 1670 ml 730 ml General: Alert, Oriented X3, Cooperative, No acute distress HEENT: Atraumatic, PERRLA, EOMI, Mucous membr. moist/pink Neck: Supple, No JVD, No thyromegaly Lungs: Clear to auscultation, Normal air movement Heart: Normal S1, Normal S2 Abdomen: Normal bowel sounds, Soft Extremities: No clubbing, No cyanosis, No edema Skin: No rashes, No breakdown, No significant lesion Neuro: Normal speech Psych/Mental Status: Mental status NL, Mood NL All Results(Lab/Rad) Laboratory Tests Test 07/12/19 11:07 07/12/19 11:25 07/12/19 12:31 07/12/19 14:30 Urine Collection Type VOID Urine Color YELLOW Urine Appearance HAZY Urine Bilirubin NEGATIVE MG/DL Urine Ketones NEGATIVE Urine Specific [place] 1.015 Urine pH 6 Urine Protein NEGATIVE Urine Urobilinogen NORMAL Urine Nitrate NEGATIVE Urine Leukocyte Esterase 25 /uL TRACE Urine Blood NEGATIVE Urine RBC NONE SEEN RBC/HPF Urine WBC 5-10 WBC/HPF Urine Squamous Epithelial Cells FEW #/HPF Urine Bacteria FEW Urine Glucose NORMAL White Blood Count 9.3 10^3/uL Red Blood Count 2.07 10^6/uL Hemoglobin 5.2 g/dL Hematocrit 16.7 % Mean Corpuscular Volume 80.7 fL Mean Corpuscular Hemoglobin 25.1 pg Mean Corpuscular Hemoglobin Concent 31.1 g/dL Red Cell Distribution Width 19.0 % Platelet Count 301 10^3/uL Mean Platelet Volume 9.2 fL Neutrophils (%) (Auto) 73.3 % Lymphocytes (%) (Auto) 19.5 % Monocytes (%) (Auto) 5.5 % Neutrophils # (Auto) 6.8 10^3/uL Lymphocytes # (Auto) 1.81 10^3/uL1 Monocytes # (Auto) 0.5 10^3/uL Absolute Immature Granulocyte (auto 0.02 10^3 u/L Absolute Eosinophils (auto) 0.1 10^3/uL Immature Granulocytes % 0.20 % Eosinophils % 1.2 % Basophils % 0.3 % Basophils # 0.0 10^3/uL Prothrombin Time 10.0 SEC Prothrombin Time INR (Non-Therap) 1.0 Activated Partial Thromboplast Time 20.0 SEC D-Dimer 0.82 mg/L Sodium Level 135 mmol/L Potassium Level 4.0 mmol/L Chloride Level 104.0 mmol/L Carbon Dioxide Level 24.9 mmol/L Anion Gap 10.1 Blood Urea Nitrogen 32 mg/dL Creatinine 0.79 mg/dL Estimated GFR () 92.5 Est GFR (CKD-EPI)(Non-Afr Armenian) 76.4 BUN/Creatinine Ratio 40.0 Glucose Level 109 mg/dL Calcium Level 7.5 mg/dL Ferritin 5 ng/mL Total Bilirubin 0.1 mg/dL Aspartate Amino Transf (AST/SGOT) 13 U/L Alanine Aminotransferase (ALT/SGPT) 18 U/L Alkaline Phosphatase 52 U/L C-Reactive Protein 0.10 mg/dL Total Protein 5.0 g/dL Albumin 2.3 g/dL Globulin 2.7 Vitamin B12 Level 256 pg/mL Folate 7.2 ng/mL Thyroid Stimulating Hormone (TSH) 5.131 mIU/mL Stool Occult Blood (IFOB) NEGATIVE Blood Smear Pathologist Review Pending Erythrocyte Sedimentation Rate 15 mm/hr Absolute Reticulocyte Count 0.0673 10^6uL Percent Reticulocyte Count 3.64 % Amylase Level 29 U/L Lipase 67 U/L Test 07/12/19 23:24 07/12/19 23:26 07/13/19 06:00 Hemoglobin 5.4 g/dL 6.2 g/dL Hematocrit 16.6 % 18.6 % Haptoglobin 130 mg/dL Iron Level 52 ug/dL Total Iron Binding Capacity 250 ug/dL Percent Iron Saturation 20.8 % Unsaturated Iron Binding Capacity 198.0 ug/dL White Blood Count 7.3 10^3/uL Red Blood Count 2.23 10^6/uL Mean Corpuscular Volume 83.4 fL Mean Corpuscular Hemoglobin 27.8 pg Mean Corpuscular Hemoglobin Concent 33.3 g/dL Red Cell Distribution Width 17.2 % Platelet Count 225 10^3/uL Mean Platelet Volume 8.5 fL Neutrophils (%) (Auto) 71.6 % Lymphocytes (%) (Auto) 20.7 % Monocytes (%) (Auto) 5.1 % Neutrophils # (Auto) 5.2 10^3/uL Lymphocytes # (Auto) 1.50 10^3/uL1 Monocytes # (Auto) 0.4 10^3/uL Absolute Immature Granulocyte (auto 0.03 10^3 u/L Absolute Eosinophils (auto) 0.1 10^3/uL Immature Granulocytes % 0.40 % Eosinophils % 1.9 % Basophils % 0.3 % Basophils # 0.0 10^3/uL Current Medications Medications (Trade) Dose Ordered Sig/Marah Route PRN Reason Start Time Stop Time Status Last Admin Dose Admin Sodium Chloride 1,000 ml @ ud STK-MED ONCE .ROUTE 07/12/19 10:54 07/12/19 10:57 DC Ondansetron HCl (Zofran) 4 mg STK-MED ONCE .ROUTE 07/12/19 10:54 07/12/19 10:57 DC Ketorolac Tromethamine (Toradol) 30 mg STK-MED ONCE .ROUTE 07/12/19 10:54 07/12/19 10:57 DC Sodium Chloride 1,000 ml @ 1,200 mls/hr Q50M STAT IV 07/12/19 11:02 07/12/19 11:51 DC 07/12/19 11:28 Ondansetron HCl (Zofran) 4 mg STAT STAT IV 07/12/19 11:02 07/12/19 11:06 DC 07/12/19 11:29 Ketorolac Tromethamine (Toradol) 30 mg STAT STAT IV 07/12/19 11:02 07/12/19 11:06 DC 07/12/19 11:28 Ceftriaxone Sodium 1 gm/ Sodium Chloride 100 ml @ 100 mls/hr STAT STAT IV 07/12/19 12:33 07/12/19 13:32 DC 07/12/19 12:41 Ceftriaxone Sodium (Rocephin) 1 gm STK-MED ONCE .ROUTE 07/12/19 12:36 07/12/19 12:38 DC Sodium Chloride 500 ml @ ud STK-MED ONCE IV 07/12/19 14:18 07/12/19 14:20 DC Morphine Sulfate (Morphine Sulfate) 4 mg OT STAT IV 07/12/19 14:56 07/12/19 15:44 DC 07/12/19 14:56 Temazepam (Restoril) 30 mg HS PRN PO INSOMNIA 07/12/19 15:00 08/11/19 14:59 Folic Acid (Folic Acid) 1 mg DAILY PO 07/13/19 09:00 08/12/19 08:59 07/13/19 08:52 Morphine Sulfate (Morphine Sulfate) 4 mg OT ONCE IV 07/12/19 20:30 07/12/19 22:14 DC 07/12/19 20:40 Ondansetron HCl (Zofran) 4 mg OT ONCE IV 07/12/19 20:30 07/12/19 22:14 DC 07/12/19 20:39 Pantoprazole Sodium (Protonix Iv) 40 mg Q12HR IV 07/13/19 00:30 08/12/19 00:29 07/13/19 08:52 Sodium Chloride 500 ml @ STK-MED ONCE IV 07/13/19 01:17 07/13/19 01:19 DC Acetaminophen (Tylenol) 500 mg Q6H PRN PO PAIN 1 - 3 07/13/19 06:00 08/12/19 05:59 07/13/19 05:52 Morphine Sulfate (Morphine Sulfate) 4 mg OT ONCE IV 07/13/19 07:00 07/13/19 08:30 DC 07/13/19 06:57 Sodium Chloride 500 ml @ STK-MED ONCE IV 07/13/19 07:54 07/13/19 07:57 DC Ceftriaxone Sodium 1 gm/ Sodium Chloride 100 ml @ 100 mls/hr DAILY IV 07/13/19 11:00 08/12/19 10:59 UNV Course Sepsis Screening Results: Posi: NEGATIVE Sepsis Qualifier/Stage: NO DEFINITE RISK Duration or Total Time Spent w: 60 min Vitals & review Data Vital Sign - Last 24 Hours 07/12/19 07/12/19 07/12/19 07/12/19 10:30 10:30 10:34 11:55 Temp 98.1 98.1 98.1 98.1 Pulse 96 96 96 100 Resp 18 18 18 18 B/P (MAP) 146/78 (100) 106/61 (76) Pulse Ox 97 97 97 O2 Delivery Room Air Room Air 07/12/19 07/12/19 07/12/19 07/12/19 12:59 14:01 14:07 14:27 Temp 98.1 98.3 98.3 Pulse 96 80 83 Resp 18 18 18 B/P (MAP) 105/60 (75) 128/77 (94) 106/65 Pulse Ox 97 96 O2 Delivery Room Air Room Air Room Air 07/12/19 07/12/19 07/12/19 07/12/19 14:49 17:20 17:21 17:39 Temp 98.2 98.6 98.6 98.4 Pulse 83 86 86 76 Resp 18 16 16 18 B/P (MAP) 113/72 104/59 104/59 109/72 07/12/19 07/12/19 07/12/19 07/13/19 19:45 19:45 19:46 00:15 Temp 98.1 98.1 98.1 Pulse 74 74 74 Resp 18 18 18 B/P (MAP) 64/4 (24) 94/43 94/43 (60) Pulse Ox 98 98 O2 Delivery Room Air Room Air Room Air 07/13/19 07/13/19 07/13/19 07/13/19 02:17 02:35 05:09 05:27 Temp 98.1 98.2 98.6 98.6 Pulse 74 77 86 86 Resp 18 18 17 18 B/P (MAP) 95/50 107/65 112/64 112/64 (80) Pulse Ox 98 O2 Delivery Room Air 07/13/19 07/13/19 07/13/19 07/13/19 07:25 07:26 08:20 08:30 Temp 98.3 98.3 98.1 Pulse 90 90 81 Resp 16 16 16 B/P (MAP) 82/41 (55) 85/43 100/63 Pulse Ox 90 O2 Delivery Room Air Room Air 07/13/19 07/13/19 07/13/19 07/13/19 08:45 09:00 09:15 09:53 Temp 98.4 Pulse 87 80 79 71 Resp 16 B/P (MAP) 97/55 91/58 97/59 101/65 Intake and Output 07/12/19 07/12/19 07/13/19 15:00 23:00 07:00 Intake Total 1000 ml 1670 ml 730 ml Balance 1000 ml 1670 ml 730 ml Laboratory Tests Test 07/12/19 11:07 07/12/19 11:25 07/12/19 12:31 07/12/19 14:30 Urine Collection Type VOID Urine Color YELLOW Urine Appearance HAZY Urine Bilirubin NEGATIVE MG/DL Urine Ketones NEGATIVE Urine Specific [place] 1.015 Urine pH 6 Urine Protein NEGATIVE Urine Urobilinogen NORMAL Urine Nitrate NEGATIVE Urine Leukocyte Esterase 25 /uL TRACE Urine Blood NEGATIVE Urine RBC NONE SEEN RBC/HPF Urine WBC 5-10 WBC/HPF Urine Squamous Epithelial Cells FEW #/HPF Urine Bacteria FEW Urine Glucose NORMAL White Blood Count 9.3 10^3/uL Red Blood Count 2.07 10^6/uL Hemoglobin 5.2 g/dL Hematocrit 16.7 % Mean Corpuscular Volume 80.7 fL Mean Corpuscular Hemoglobin 25.1 pg Mean Corpuscular Hemoglobin Concent 31.1 g/dL Red Cell Distribution Width 19.0 % Platelet Count 301 10^3/uL Mean Platelet Volume 9.2 fL Neutrophils (%) (Auto) 73.3 % Lymphocytes (%) (Auto) 19.5 % Monocytes (%) (Auto) 5.5 % Neutrophils # (Auto) 6.8 10^3/uL Lymphocytes # (Auto) 1.81 10^3/uL1 Monocytes # (Auto) 0.5 10^3/uL Absolute Immature Granulocyte (auto 0.02 10^3 u/L Absolute Eosinophils (auto) 0.1 10^3/uL Immature Granulocytes % 0.20 % Eosinophils % 1.2 % Basophils % 0.3 % Basophils # 0.0 10^3/uL Prothrombin Time 10.0 SEC Prothrombin Time INR (Non-Therap) 1.0 Activated Partial Thromboplast Time 20.0 SEC D-Dimer 0.82 mg/L Sodium Level 135 mmol/L Potassium Level 4.0 mmol/L Chloride Level 104.0 mmol/L Carbon Dioxide Level 24.9 mmol/L Anion Gap 10.1 Blood Urea Nitrogen 32 mg/dL Creatinine 0.79 mg/dL Estimated GFR () 92.5 Est GFR (CKD-EPI)(Non-Afr Armenian) 76.4 BUN/Creatinine Ratio 40.0 Glucose Level 109 mg/dL Calcium Level 7.5 mg/dL Ferritin 5 ng/mL Total Bilirubin 0.1 mg/dL Aspartate Amino Transf (AST/SGOT) 13 U/L Alanine Aminotransferase (ALT/SGPT) 18 U/L Alkaline Phosphatase 52 U/L C-Reactive Protein 0.10 mg/dL Total Protein 5.0 g/dL Albumin 2.3 g/dL Globulin 2.7 Vitamin B12 Level 256 pg/mL Folate 7.2 ng/mL Thyroid Stimulating Hormone (TSH) 5.131 mIU/mL Stool Occult Blood (IFOB) NEGATIVE Erythrocyte Sedimentation Rate 15 mm/hr Absolute Reticulocyte Count 0.0673 10^6uL Percent Reticulocyte Count 3.64 % Amylase Level 29 U/L Lipase 67 U/L Test 07/12/19 23:24 07/12/19 23:26 07/13/19 06:00 Hemoglobin 5.4 g/dL 6.2 g/dL Hematocrit 16.6 % 18.6 % Haptoglobin 130 mg/dL Iron Level 52 ug/dL Total Iron Binding Capacity 250 ug/dL Percent Iron Saturation 20.8 % Unsaturated Iron Binding Capacity 198.0 ug/dL White Blood Count 7.3 10^3/uL Red Blood Count 2.23 10^6/uL Mean Corpuscular Volume 83.4 fL Mean Corpuscular Hemoglobin 27.8 pg Mean Corpuscular Hemoglobin Concent 33.3 g/dL Red Cell Distribution Width 17.2 % Platelet Count 225 10^3/uL Mean Platelet Volume 8.5 fL Neutrophils (%) (Auto) 71.6 % Lymphocytes (%) (Auto) 20.7 % Monocytes (%) (Auto) 5.1 % Neutrophils # (Auto) 5.2 10^3/uL Lymphocytes # (Auto) 1.50 10^3/uL1 Monocytes # (Auto) 0.4 10^3/uL Absolute Immature Granulocyte (auto 0.03 10^3 u/L Absolute Eosinophils (auto) 0.1 10^3/uL Immature Granulocytes % 0.40 % Eosinophils % 1.9 % Basophils % 0.3 % Basophils # 0.0 10^3/uL Current Medications Medications (Trade) Dose Ordered Sig/Marah PRN Reason Start Time Stop Time Status Last Admin Acetaminophen (Tylenol) 500 mg Q6H PRN PAIN 1 - 3 07/13/19 06:00 08/12/19 05:59 07/13/19 05:52 Ceftriaxone Sodium 1 gm/ Sodium Chloride 100 ml @ 100 mls/hr DAILY 07/13/19 11:00 08/12/19 10:59 UNV Folic Acid (Folic Acid) 1 mg DAILY 07/13/19 09:00 08/12/19 08:59 07/13/19 08:52 Pantoprazole Sodium (Protonix Iv) 40 mg Q12HR 07/13/19 00:30 08/12/19 00:29 07/13/19 08:52 Temazepam (Restoril) 30 mg HS PRN INSOMNIA 07/12/19 15:00 08/11/19 14:59 Sepsis Infection Criteria Pres: None LEVEL 1 SEPSIS INFECTION CRITE: Urinary Tract Infection O2 Sat by Pulse Oximetry: 93 Oxygen Flow Rate: 2.00 Assessment/Plan Assessment/Plan Assessment/Plan 54 yo female with PUD and H pylori and acute GI bleed/anemia, UTI - transfer to med surg this evening after PPI drip done - ambulate - recheck H/H tomorrow - on abx for UTI and H pylori GILDARDO WASSERMAN MD Jul 15, 2019 12:37
--- NOTE | 2019-07-15 18:50 | NUR ---
REPORT FROM MARGOTH IRVIN. PATIENT COMFORTABLE, DENIED ANY CONCERNS AT THIS TIME. ASSUMED CARE.
[2019-07-15] MEDS: RESTORIL PO PRN (20:20)
--- NOTE | 2019-07-15 21:47 | NUR ---
FOR TRANSFER RECEIVED ORDER FROM DR WASSERMAN TO TRANSFER PATIENT TO [facility]. [facility].
--- NOTE | 2019-07-15 22:02 | NUR ---
TRANSFERRED TO [facility] RM 340 REPORT GIVEN TO CHASIDY IRVIN. PATIENT'S BELONGINGS WITH PATIENT. CARE RELINQUISHED.
--- NOTE | 2019-07-15 22:15 | NUR ---
Pt transfered to [facility] from ICU Pt vitals obtained. Oriented to room and floor. Fluids offered. Pt denies discomforts at this time. Call light avail
[2019-07-16] MEDS: TYLENOL PO PRN ×2 (01:38→07:46)
[2019-07-16] MEDS: HNS 1000ML/KCL 20MEQ 1,000 ML IV SCH (04:26)
[2019-07-16 05:53] VITALS: BP 123/60
[2019-07-16 08:20] VITALS: BP 115/51
[2019-07-16] MEDS: FOLIC ACID PO SCH (08:30)
[2019-07-16] MEDS: ZITHROMAX PO SCH (08:30)
[2019-07-16] MEDS ORDERED: NS 100ML 100 ML IV ONE ×2 (09:26)
[2019-07-16] MEDS ORDERED: ROCEPHIN ONE (09:26)
[2019-07-16] MEDS: ROCEPHIN 1 GM in NS 100ML 100 ML IV SCH (09:32)
--- NOTE | 2019-07-16 09:59 | PRM.PN ---
PROGRESS NOTE SUBJECTIVE DATE: July 16, 2019 SUBJECTIVE: 54-year-old female no acute distress seen in her room with the nursing service, tolerating full liquid diet. OBJECTIVE: VITAL SIGNS: Last temperature 98.1 pulse 90 respiratory of 16 blood pressure 115/51 ABDOMEN: Soft nontender on exam today LABORATORY DATA: Labs today show hemoglobin 8.1 hematocrit 24.5 ASSESSMENT: 1. Peptic ulcer disease with acute blood loss. 2. History of smokeless tobacco use. 3. Status post massive transfusion. PLAN: 1. The patient is seen and examined, the chart is reviewed. Continue full liquid diet at this point, the patient will need to be on PPI p.o. twice daily after discharge. When she is clinically stable she may be discharged she can continue her current hospitalization until she is improved appropriately. Clear education will need to be provided this patient regarding appropriate care for herself after discharge. RAMOS BILLS DO Jul 16, 2019 09:59
[2019-07-16] MEDS ORDERED: AMOX500T PO (10:37)
[2019-07-16] MEDS ORDERED: PANT40TA3 PO (10:37)
[2019-07-16] MEDS ORDERED: AZIT500T PO (10:37)
--- NOTE | 2019-07-16 10:39 | PRM.DC ---
DISCHARGE SUMMARY DISCHARGE SUMMARY DATE OF ADMISSION: July 12, 2019 DATE OF DISCHARGE: July 24, 2019 ADMITTING DIAGNOSES: Acute anemia with epigastric pain, UTI DISCHARGE DIAGNOSES: Peptic ulcer disease with acute bleed, UTI, H. pylori infection DISCHARGE DISPOSITION: Patient is discharged to home DISCHARGE CONDITION: Improved HOSPITAL COURSE: 54-year-old female who came in with some epigastric pain and nausea and not feeling well. Her hemoglobin was down to 5 and she was looking very pale. She was admitted to the hospital and she started to have increasing dark stools. She was transferred to ICU and started on a Protonix drip and surgery was consulted. She has had a total of 6 units of packed red blood cells transfused and 1 unit of FFP to stabilize her and she had a double scope that showed 2 significant peptic ulcers that were not actively bleeding at this time. She was brought back to ICU and the Protonix drip was continued for 48 hours and then switch to twice a day dosing. Her H. pylori was positive and she has been on antibiotics in the hospital to treat the UTI and the H. pylori. She was transferred to the floor and she is feeling better. Her hemoglobin is stable at 8 at this time. Her vital signs are stable. I counseled her on not taking any [id number] medications for now including NSAIDs and the only [id number] medication to take would be Tylenol as needed. She will need to follow-up with her primary care provider to make sure her hemoglobin/anemia improves over time. She will need to be scoped again and will need to follow-up in the future for this. DIET: Stay on a liquid diet for this week and then advance to a soft diet ACTIVITY: As tolerated OTHER: Avoid all NSAIDs and [id number] medications except for Tylenol as needed MEDICATIONS: 1. Resume home medications 2. Protonix 40 mg twice a day for 3 months 3. Zithromax 500 mg p.o. daily x5 days 4. Amoxicillin 1000 mg p.o. twice daily x7 days FOLLOW-UP: Follow-up with her PCP, JEWELL Lugo, in 7 to 10 days GILDARDO WASSERMAN MD Jul 16, 2019 10:39
[2019-07-16 11:32] VITALS: BP 115/51
== END 2019-07-16 13:42 | disposition home or self-care (01) | DRG 689 ==
LOC: ER 10:15 → MS 12:31 → ICU 07-13 20:00 → MS 07-15 22:00
PROVIDERS: ADMIT Pediatrics; ATTEND Pediatrics
PROC: 30233N1 Transfusion of Nonautologous Red Blood Cells into Peripheral Vein, Percutaneous Approach (ICD-10-PCS; principal; 2019-07-12)
PROC: 0DB68ZX Excision of Stomach, Via Natural or Artificial Opening Endoscopic, Diagnostic (ICD-10-PCS; 2019-07-14)
PROC: 0DBM8ZX Excision of Descending Colon, Via Natural or Artificial Opening Endoscopic, Diagnostic (ICD-10-PCS; 2019-07-14)
PROC: 0DBP8ZX Excision of Rectum, Via Natural or Artificial Opening Endoscopic, Diagnostic (ICD-10-PCS; 2019-07-14)
PROC: 30233K1 Transfusion of Nonautologous Frozen Plasma into Peripheral Vein, Percutaneous Approach (ICD-10-PCS; 2019-07-14 08:00)
DX: N39.0 Urinary tract infection, site not specified (principal); K25.4 Chronic or unspecified gastric ulcer with hemorrhage; D62 Acute posthemorrhagic anemia; J45.909 Unspecified asthma, uncomplicated; M54.9 Dorsalgia, unspecified; G43.909 Migraine, unspecified, not intractable, without status migrainosus; K21.9 Gastro-esophageal reflux disease without esophagitis; R79.89 Other specified abnormal findings of blood chemistry; B96.81 Helicobacter pylori [H. pylori] as the cause of diseases classified elsewhere; K62.1 Rectal polyp; K63.5 Polyp of colon; Z82.49 Family history of ischemic heart disease and other diseases of the circulatory system; Z98.51 Tubal ligation status; Z90.711 Acquired absence of uterus with remaining cervical stump; Z87.891 Personal history of nicotine dependence; Z88.8 Allergy status to other drugs, medicaments and biological substances
CPT/HCPCS: 36415; 36430; 74176; 80048; 80053; 81000; 82150; 82272; 82607; 82728; 82746; 83010; 83550; 83690; 84443; 85014; 85018; 85025; 85045; 85060; 85379; 85610; 85651; 85730; 86140; 86677; 86885; 86900; 86901; 86921; 87077; 87086; 87186; 93005; 99285; C9113; G0378; J0696; J1885; J2250; J2270; J2405; J3490; J7030; J7040; J7050; J7120; P9016; 88305; 88307; J0585; P9017; Q0144

== ENCOUNTER → 2019-07-20 | Outpatient (CLI) | payer SELFPAY ==
[~2019-07-20] MED LIST: ALBU18HF IH; AMOX500T PO; AZIT500T PO; PANT40TA3 PO
[2019-07-20 10:12] LABS: BASOPHIL % 0.4 % (0.0-0.2); EOSINOPHIL # 0.3 10^3/uL (0.0-0.2); EOSINOPHIL % 5.4 % (0.0-5.0); LYMPHOCYTES # 1.19 10^3/uL1 (1.0-4.8); LYMPHOCYTES % 22.8 % (24.0-44.0); MEAN CORP HGB 28.3 pg (26-34); MONOCYTES # 0.4 10^3/uL (0.3-0.8); MONOCYTES % 6.7 % (5.0-12.0); NEUTROPHIL # 3.4 10^3/uL (1.8-7.7); NEUTROPHILS % 64.5 % (41.0-85.0); PLATELET COUNT 413 10^3/uL (150-400); RED CELL DISTRIBUTION WIDTH 16.3 % (11.5-14.5)
[2019-07-20 10:27] LABS: CALCIUM 8.1 mg/dL (8.4-10.5); CARBON DIOXIDE 27.6 mmol/L (20.0-32)
== END | disposition home or self-care (01) ==
LOC: LAB 09:49
PROVIDERS: ATTEND Pediatrics
DX: D64.9 Anemia, unspecified (principal); R53.83 Other fatigue; K27.9 Peptic ulcer, site unspecified, unspecified as acute or chronic, without hemorrhage or perforation
CPT/HCPCS: 36415; 80048; 80076; 85025

== ENCOUNTER → 2019-08-24 | Outpatient (CLI) | payer SELFPAY ==
[2019-08-24 11:54] LABS: RED CELL DISTRIBUTION WIDTH 17.4 % (11.5-14.5)
[2019-08-24 12:11] LABS: CALCIUM 8.5 mg/dL (8.4-10.5); CARBON DIOXIDE 28.3 mmol/L (20.0-32)
== END | disposition home or self-care (01) ==
LOC: LAB 11:27
PROVIDERS: ATTEND Nurse Practitioner Family
DX: D64.9 Anemia, unspecified (principal)
CPT/HCPCS: 36415; 80053; 85027

== ENCOUNTER → 2019-09-14 | Outpatient (CLI) | payer SELFPAY ==
[2019-09-14 12:06] LABS: MEAN CORP HGB 23.9 pg (26-34); RED CELL DISTRIBUTION WIDTH 17.7 % (11.5-14.5)
== END | disposition home or self-care (01) ==
LOC: LAB 11:00
PROVIDERS: ATTEND Nurse Practitioner Family
DX: D64.9 Anemia, unspecified (principal)
CPT/HCPCS: 36415; 85027

== ENCOUNTER → 2019-10-08 | Outpatient (CLI) | payer SELFPAY ==
[2019-10-08 11:21] LABS: CALCIUM 8.6 mg/dL (8.4-10.5); CARBON DIOXIDE 24.8 mmol/L (20.0-32)
[2019-10-08 11:26] LABS: MEAN CORP HGB 23.3 pg (26-34); RED CELL DISTRIBUTION WIDTH 18.7 % (11.5-14.5)
== END | disposition home or self-care (01) ==
LOC: LAB 10:20
PROVIDERS: ATTEND Nurse Practitioner Family
DX: D64.9 Anemia, unspecified (principal)
CPT/HCPCS: 36415; 80053; 85027

== ENCOUNTER → 2019-10-19 | Outpatient (CLI) | payer SELFPAY ==
[2019-10-19 12:45] LABS: MEAN CORP HGB 23.7 pg (26-34); RED CELL DISTRIBUTION WIDTH 20.8 % (11.5-14.5)
[2019-10-19 13:12] LABS: CALCIUM 8.6 mg/dL (8.4-10.5); CARBON DIOXIDE 29.1 mmol/L (20.0-32)
== END | disposition home or self-care (01) ==
LOC: LAB 12:19
PROVIDERS: ATTEND Nurse Practitioner Family
DX: D64.9 Anemia, unspecified (principal)
CPT/HCPCS: 36415; 80053; 85027

== ENCOUNTER 2020-01-28 07:16 | Emergency (ER) | payer SELFPAY ==
[~2020-01-28] VITALS: Ht 170.2 cm; Wt 90.7 kg
[2020-01-28 07:20] VITALS: BP 161/89
--- NOTE | 2020-01-28 07:50 | NUR ---
SWABS OBTAINED SWABS FOR FLU, STREP, COVID. EXPLAINED TO PT THAT SHE WILL NEED TO SELF QUARANTINE ALONG WITH HOUSEHOLD UNTIL NEGATIVE RESULT FROM LAB OR 14 DAYS POST SYMPTOMS. SHE HAS VOICED UNDERSTANDING.
--- NOTE | 2020-01-28 08:22 | ER.PDOC ---
General Chief Complaint: General Complaint Stated Complaint: BODY ACHES, Time seen by MD: 08:19 Source: patient Exam Limitations: no limitations History of Present Illness Initial Comments Bodyaches, fever, cough and congestion for past few days. She got exposed to her mom who has COVID-19. Timing/Duration: gradual Severity: moderate Associated Symptoms: fever/chills, runny nose, cough Allergies: Coded Allergies: Sulfa (Sulfonamide Antibiotics) (Verified Allergy, Unknown, 07/14/19) fluticasone (Verified Allergy, Unknown, Swelling, 09/13/16) salmeterol (Verified Allergy, Unknown, Swelling, 09/13/16) Home Meds Active Scripts Amoxicillin (AMOXICILLIN) 500 Mg Tablet, 2 TAB PO BID, #28 TAB 0 Refills Prov:GILDARDO WASSERMAN MD 07/16/19 Azithromycin (ZITHROMAX) 500 Mg Tablet, 500 MG PO DAILY24, #5 TAB 0 Refills Prov:GILDARDO WASSERMAN MD 07/16/19 Pantoprazole Sodium (PROTONIX) 40 Mg Tablet.dr, 40 MG PO BID, #60 TAB 2 Refills Prov:GILDARDO WASSERMAN MD 07/16/19 Reported Medications Albuterol Sulfate (VENTOLIN HFA) 18 Gm Hfa.aer.ad, 18 GM IH PRN PRN for SHORTNESS OF BREATH, INHALATION 07/12/19 Constitutional: see HPI EENTM: see HPI Respiratory: see HPI Cardiovascular: no symptoms reported Gastrointestinal: no symptoms reported Genitourinary: no symptoms reported Musculoskeletal: see HPI All Other Systems: Reviewed and Negative Past Medical History Medical History: asthma Surgical History: hysterectomy, tubal Social History Alcohol Use: none Drug Use: none Physical Exam General Appearance: alert, no distress Nose: nose nml Throat: pharynx nml, airway nml Neck: nml inspection, supple Respiratory: no resp.distress, breath sounds nml Abdomen: non-tender, no organomegaly CVS: reg rate & rhythm, heart sounds nml Skin: color nml, no rash, warm/dry Extremities: non-tender, nml ROM, no pedal edema NEURO/PSYCH: oriented x 3, CN's nml as tested, motor nml, sensation nml, mood/affect nml Results/Orders Results/Orders Orders - KRISTAL MAYO MD Influenza A&B (01/28/20 07:36) Strep Screen (01/28/20 07:36) Novel Coronavirus 2019(D[facility]s) (01/28/20 07:36) Vital Signs Date Time Temp Pulse Resp B/P (MAP) Pulse Ox O2 Delivery O2 Flow Rate FiO2 01/28/20 07:20 98.2 90 18 161/89 (113) 97 Room Air 01/28/20 07:20 98.2 90 18 97 01/28/20 07:20 98.2 90 18 Laboratory Tests Test 01/28/20 07:40 Influenza Type A Antigen NEGATIVE (NEG) Influenza B Immunofluorescence NEGATIVE (NEG) Group A Streptococcus Screen NEGATIVE (NEGATIVE) ER DEPART Departure Time of Disposition: 08:20 Disposition: 01 HOME, SELF-CARE Impression: Primary Impression: Viral upper respiratory illness Additional Impression: COVID-19 ruled out Condition: Stable Referrals: FLORA ADRIAN CARD TABLE ATTENDANT (PCP) PRIMARY CARE PROVIDER Additional Instructions: Ibuprofen or Tylenol Zinc, Vitamin C & D OTC as directed Self quarantine at home until you are notified with your COVID results F/U with PCP in 1 week Return to ED if worsening symptoms or concerns Duration or Time Spent with Pa: 10 min Problem Qualifiers KRISTAL MAYO MD Jan 28, 2020 08:22
== END 2020-01-28 08:25 | disposition home or self-care (01) ==
LOC: ER 07:16
DX: J06.9 Acute upper respiratory infection, unspecified (principal); J45.909 Unspecified asthma, uncomplicated; Z20.828 Contact with and (suspected) exposure to other viral communicable diseases; Z79.899 Other long term (current) drug therapy; Z88.2 Allergy status to sulfonamides; Z90.710 Acquired absence of both cervix and uterus
CPT/HCPCS: 87070; 87635; 87804; 87880; 99283